=== PATIENT | male | born 1940 | race Caucasian/White ===

== ENCOUNTER 2017-12-14 15:25 | Emergency (ER) | payer MEDICARE ==
[2017-12-14 15:30] VITALS: BP 119/71; PULSE 52; RESP 16; TEMP 97.8
--- NOTE | 2017-12-14 15:58 | ED ---
General Adult HPI - General Chief complaint: Extremity Injury, Lower Stated complaint: Leg injury Time Seen by Provider: 12/14/17 15:34 Source: patient, RN notes reviewed Mode of arrival: ambulatory Limitations: no limitations - History of Present Illness Initial comments: 76-year-old male presents to the emergency department for a chief complaint of leg injury 4 hours. Patient states he stepped on a mat in his bathroom when it slipped forward and he hit his left darby against the bathtub. Patient states she noticed a bruise forming. He states he is on blood thinners and his wanted him to be evaluated. Patient denies falling. He denies injuring his back, neck. Patient denies hitting his head or any loss of consciousness. Patient denies any dizziness or lightheadedness preceding this incident. Patient states he is able to ambulate on the leg without any pain or difficulty. Patient has no other complaints at this time including shortness of breath, chest pain, abdominal pain, nausea or vomiting, headache, or visual changes. - Related Data Allergies Allergy/AdvReac Type Severity Reaction Status Date / Time No Known Allergies Allergy Verified 12/14/17 15:30 Review of Systems ROS Statement: Those systems with pertinent positive or pertinent negative responses have been documented in the HPI. ROS Other: All systems not noted in ROS Statement are negative. Past Medical History Past Medical History: CVA/TIA, Hypertension, Osteoarthritis (OA) History of Any Multi-Drug Resistant Organisms: None Reported Past Surgical History: Heart Catheterization With Stent, Orthopedic Surgery Past Psychological History: No Psychological Hx Reported Smoking Status: Current every day smoker Past Alcohol Use History: None Reported Past Drug Use History: None Reported General Exam Limitations: no limitations General appearance: alert, in no apparent distress Head exam: Present: atraumatic (No contusions noted on the scalp), normocephalic , normal inspection Eye exam: Present: normal appearance, PERRL, EOMI. Absent: scleral icterus, conjunctival injection, periorbital swelling, periorbital tenderness ENT exam: Present: normal exam, mucous membranes moist Neck exam: Present: normal inspection, full ROM. Absent: tenderness, meningismus, lymphadenopathy Respiratory exam: Present: normal lung sounds bilaterally. Absent: respiratory distress, wheezes, rales, rhonchi, stridor Cardiovascular Exam: Present: regular rate, normal rhythm, normal heart sounds. Absent: systolic murmur, diastolic murmur, rubs, gallop, clicks Extremities exam: Present: full ROM (full ROM of the left knee, ankle and digits ), tenderness (Mild tenderness noted to the contusion of the left lower extremity.), normal capillary refill (Capillary refill less than 2 seconds in foot warm to palpation in the left lower extremity.), calf tenderness (Minimal calf tenderness due to bruising, negative Homans sign, negative erythema or increased warmth in the left calf. No evidence for blood clot.), other ( Sensation intact in the left lower extremity. Patient does have a 8 cm x 8 cm contusion noted to the anterior medial left lower leg. No breaks in the skin.) . Absent: pedal edema Back exam: Absent: tenderness Neurological exam: Present: alert, oriented X3, CN II-XII intact Psychiatric exam: Present: normal affect, normal mood Course Vital Signs 12/14/17 15:26 Temperature 97.8 F Pulse Rate 52 L Respiratory 16 Rate Blood Pressure 119/71 O2 Sat by Pulse 98 Oximetry Medical Decision Making - Medical Decision Making 76-year-old male presents to the emergency department for a chief complaint of leg contusion 4 hours after hitting it on the side of the bathtub. He did not fall, hit his head, or sustain any other injuries. wanted him to be evaluated. There is an 8 cm x 8 cm contusion noted of the left anterior medial lower leg. Tenderness over contusion site. Patient able to ambulate without difficulty. Neurovascular intact in left lower extremity. Full range motion of the knee and ankle. Patient does have some minimal Tenderness that started 4 hours ago with the injury. Negative Cale sign, no erythema, edema, or increased warmth of the calf. Patient is on L Aquinas. No evidence for a DVT at this time. I did offer x-ray of the left tib-fib to patient which she refuses. Patient states that he thinks it would be a lot worse if he actually broke or fractured his leg. He states he is ambulating on it without difficulty. He states he would rather return if symptoms worsen for an x-ray. He will follow up with primary care in 1-2 days. Referrals were given. He will return if he has any worsening symptoms. Disposition Clinical Impression: Contusion of leg, left Disposition: HOME SELF-CARE Condition: Good Instructions: Contusion in Adults (ED), Leg Pain (ED) Additional Instructions: Please rest ice and elevate the left leg. Please follow-up with primary care in 1-2 days for recheck. Return to the emergency department if you have any worsening symptoms. Is patient prescribed a controlled substance at d/c from ED?: No Referrals: Marie Lenz MD [REFERRING] - 1-2 days Nikhil Horton MD [STAFF PHYSICIAN] - 1-2 days Geovanna Flores III, MD [STAFF PHYSICIAN] - 1-2 days Time of Disposition: 15:56
== END 2017-12-14 16:09 | disposition home or self-care (01) ==
LOC: EC 15:25
DX: S80.12XA Contusion of left lower leg, initial encounter (principal); F17.200 Nicotine dependence, unspecified, uncomplicated; Z79.01 Long term (current) use of anticoagulants; Z86.73 Personal history of transient ischemic attack (TIA), and cerebral infarction without residual deficits; W22.09XA Striking against other stationary object, initial encounter; Y92.002 Bathroom of unspecified non-institutional (private) residence as the place of occurrence of the external cause
CPT/HCPCS: 99283

== ENCOUNTER 2018-01-23 15:05 | Emergency (ER) | payer MEDICARE, OTHER ==
[2018-01-23 15:23] VITALS: RESP 18
[2018-01-23] MEDS ORDERED: MORPHINE SULFATE 4 MG/ML SYRINGE IM STA (15:42)
--- NOTE | 2018-01-23 16:11 | ED ---
Fall HPI - General Chief Complaint: Fall Stated Complaint: Fall-poss broken rib & hand Time Seen by Provider: 01/23/18 15:25 Source: patient, RN notes reviewed Mode of arrival: wheelchair Limitations: no limitations - History of Present Illness Initial Comments: This a 77-year-old male presents emergency Department chief complaint trip and fall. Patient states she tripped in his driveway falling forward striking his left shoulder, left hand and left side of his ribs. Patient also states that he struck his face. Patient has multiple abrasions on his face did not lose consciousness. Patient states he has slight headache. Patient is more concerned about his left shoulder ribs and hand. Patient did admit that he does take Eliquis. Patient lives states that he is at his normal baseline values in extreme pain. Patient denies any shortness of breath, nausea vomiting. Patient is up-to-date on his tetanus. - Related Data Previous Rx's Medication Instructions Recorded HYDROcodone/APAP 7.5-325MG [Berwick 1 tab PO Q6HR PRN 3 Days #12 tab 01/23/18 7.5-325] Allergies Allergy/AdvReac Type Severity Reaction Status Date / Time No Known Allergies Allergy Verified 01/23/18 15:23 Review of Systems ROS Statement: Those systems with pertinent positive or pertinent negative responses have been documented in the HPI. ROS Other: All systems not noted in ROS Statement are negative. Past Medical History Past Medical History: CVA/TIA, Hypertension, Osteoarthritis (OA) History of Any Multi-Drug Resistant Organisms: None Reported Past Surgical History: Heart Catheterization With Stent, Orthopedic Surgery Past Psychological History: No Psychological Hx Reported Smoking Status: Current every day smoker Past Alcohol Use History: None Reported Past Drug Use History: None Reported General Exam Limitations: no limitations General appearance: alert, in no apparent distress Head exam: Present: atraumatic, normocephalic, normal inspection Eye exam: Present: normal appearance, PERRL, EOMI, other (Patient is noted to left inferior orbital region). Absent: scleral icterus, conjunctival injection , periorbital swelling ENT exam: Present: normal oropharynx, mucous membranes moist, TM's normal bilaterally, normal external ear exam. Absent: normal exam (Nasal bridge abrasion) Neck exam: Present: normal inspection, full ROM. Absent: tenderness, meningismus, lymphadenopathy Respiratory exam: Present: normal lung sounds bilaterally, chest wall tenderness (Moderate left-sided). Absent: respiratory distress, wheezes, rales , rhonchi, stridor Cardiovascular Exam: Present: regular rate, normal rhythm, normal heart sounds. Absent: systolic murmur, diastolic murmur, rubs, gallop, clicks GI/Abdominal exam: Present: soft, normal bowel sounds. Absent: distended, tenderness, guarding, rebound, rigid Extremities exam: Present: other (Severe tenderness to left hand, left shoulder region no obvious deformity mild swelling., No hip tenderness) Neurological exam: Present: alert, oriented X3, CN II-XII intact, reflexes normal. Absent: motor sensory deficit Skin exam: Present: warm, dry, intact, normal color. Absent: rash Course Vital Signs 01/23/18 15:21 Temperature 98.5 F Pulse Rate 78 Respiratory 18 Rate Blood Pressure 118/86 O2 Sat by Pulse 99 Oximetry Procedures - Orthopedic Splinting/Casting Injury #1 Side: left Upper Extremity Injury Location: short arm, hand Upper Extremity Immobilizer: volar splint Medical Decision Making - Medical Decision Making 77-year-old male presents emergency from for a fall. Patient had CT of brain, C -spine and facial bones shows no acute intracranial hemorrhage, fracture or dislocation. Patient also had x-rays of his left shoulder, ribs, left hand. Patient has no evidence of rib fracture, pneumothorax no shoulder fracture but does have fracture of the fourth and fifth metacarpal of his left hand. Patient will be splinted. I did discuss with the patient that he is on Eliquis and he had a head injury. He has a normal neuro exam. We did discuss that there is a chance for a delayed bleed. He is return for any change, worsening, new or any other concerns in the symptoms. Patient and in the room understand and agree. Disposition Clinical Impression: Fall, Facial abrasion, Head injury, Left hand fracture, Contusion of rib on left side Disposition: HOME SELF-CARE Condition: Stable Instructions: Hand Fracture (ED), Head Injury (ED) Additional Instructions: Please return to the Emergency Department if symptoms worsen or any other concerns. Prescriptions: HYDROcodone/APAP 7.5-325MG [Berwick 7.5-325] 1 tab PO Q6HR PRN 3 Days #12 tab PRN Reason: Pain Is patient prescribed a controlled substance at d/c from ED?: No Referrals: [facility],Clinic [Primary Care Provider] - 1-2 days Linden Interiano MD [STAFF PHYSICIAN] - 1-2 days Time of Disposition: 16:57
--- NOTE | 2018-01-23 16:18 | XR ---
EXAMINATION TYPE: XR shoulder complete LT DATE OF EXAM: 01/23/2018 COMPARISON: NONE HISTORY: Pain TECHNIQUE: Shoulder examined in 3 FINDINGS: The humeral head articulates with the glenoid. Joint space may be narrowed. The acromio-clavicular junction is hypertrophied compatible with degenerative change. No acute fractures or dislocations are evident. A follow up study can be performed 7-10 days from acute trauma for continued pain. IMPRESSION: 1. Degenerative changes within the shoulder. No acute osseous abnormality is evident.
--- NOTE | 2018-01-23 16:18 | XR ---
EXAMINATION TYPE: XR hand complete LT DATE OF EXAM: 01/23/2018 COMPARISON: None HISTORY: Pain following fall TECHNIQUE: Three-view left hand FINDINGS: There is a fracture of the proximal fifth metacarpal, there is some displacement of the dis grayson fracture fragment. There is a distal diaphyseal fourth metacarpal fracture. There is loss of the joint space of the index finger metacarpal phalangeal joint space. 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 There is soft tissue swelling over the fracture sites. Remaining joint spaces appear preserved. IMPRESSION: 1. Fracture of the proximal fifth metacarpal with some mild subluxation of the distal fracture fragm ent in relation to the proximal fracture fragment. 2. Fracture of the distal metadiaphyseal for the metacarpal. 3. Degenerative joint changes second metacarpal phalangeal joint space. 4. 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 5. Diffuse soft tissue swelling greater over the fracture sites.
--- NOTE | 2018-01-23 16:19 | XR ---
EXAMINATION TYPE: XR ribs LT w pa chest xray DATE OF EXAM: 01/23/2018 COMPARISON: None HISTORY: Fall, pain TECHNIQUE: Chest is examined in the frontal projection. Left ribs are examined in 2 views. FINDINGS: No pneumothorax is evident. Cardiomediastinal silhouette is normal. No displaced rib fractu res are evident. IMPRESSION: 1. Normal left ribs
--- NOTE | 2018-01-23 16:43 | CT ---
EXAMINATION TYPE: CT brain natalia yeboah DATE OF EXAM: 01/23/2018 COMPARISON: HISTORY: Fall, nasal laceration CT DLP: 2485.5 mGycm, Automated exposure control for dose reduction was used. CONTRAST: Patient injected with mL of . CT of the brain is performed utilizing 3 mm thick sections through the posterior fossa and 3 mm thick sections through the remaining calvarium. Study is performed within 24 hours of arrival to the hospital. No abnormal hyperdensity is present to suggest an acute intracranial hemorrhage. No mass lesion is evident. No acute infarcts are evident. Old lacunar infarct or Virchow-Phill spaces in the inferior left basa l ganglion. Ventricles and sulci are appropriate for the patient age. Paranasal sinuses and mastoid air cells within the [id number] are clear. IMPRESSIONS: 1. No acute intracranial process. CT cervical spine. COMPARISON: None CT of the cervical spine is performed in the axial plane at 2 mm thick sections. Reconstructed image s in the coronal, and sagittal plane are reviewed on the computer. No acute fractures are evident. There is a slight kyphosis present of the cervical spine. There is loss of disc height greatest at C5-6 C6-7. Some vacuum disc phenomenon is present at these l evels. Anterior vertebral body spurring is present throughout the cervical spine. Vertebral body heights are preserved. No spinal canal stenosis is evident. Some uncovertebral joint hypertrophy is present C5-6 causing moderate foraminal narrowing. Milder unc overtebral joint hypertrophy is present C6-7 milder foraminal narrowing. IMPRESSIONS: 1. No acute osseous abnormality cervical spine. 2. Degenerative disc changes C5-6 C6-7. 3. Spinal kyphosis which can be positional or related to muscle spasm.
--- NOTE | 2018-01-23 16:45 | CT ---
EXAMINATION TYPE: CT facial bones wo con DATE OF EXAM: 01/23/2018 COMPARISON: None HISTORY: Fall, nasal laceration CT DLP: 2485.5 mGycm CONTRAST: 0 mL of Isovue 300 The facial bones are examined in the axial plane at 2 mm thick sections. Reconstructed images in the coronal plane were obtained. Patient has dentures. The maxillary sinuses are clear. The ethmoid air cells are clear. The sphenoid sinuses are clear. The frontal sinuses are clear. The septum is evaluated. There is septal deviation to the right. The ostiomeatal units are patent. Maxillary spine is intact. The facial soft tissues appear normal. Nasal bones are intact. Temporomandibular junctions appear normal. IMPRESSIONS: 1. No acute osseous abnormality facial bones.
[2018-01-23] MEDS ORDERED: HYDROcodone/APAP 10-325MG 1 EACH TAB PO ONE (17:06)
[2018-01-23 17:18] VITALS: BP 148/82; PULSE 81; TEMP 97.3
== END 2018-01-23 17:18 | disposition home or self-care (01) ==
LOC: EC 15:05
DX: S62.395A Other fracture of fourth metacarpal bone, left hand, initial encounter for closed fracture (principal); S62.397A Other fracture of fifth metacarpal bone, left hand, initial encounter for closed fracture; S20.212A Contusion of left front wall of thorax, initial encounter; S00.31XA Abrasion of nose, initial encounter; M19.90 Unspecified osteoarthritis, unspecified site; F17.200 Nicotine dependence, unspecified, uncomplicated; Z86.73 Personal history of transient ischemic attack (TIA), and cerebral infarction without residual deficits; Z95.5 Presence of coronary angioplasty implant and graft; W01.0XXA Fall on same level from slipping, tripping and stumbling without subsequent striking against object, initial encounter; Y93.01 Activity, walking, marching and hiking; Y92.093 Driveway of other non-institutional residence as the place of occurrence of the external cause
CPT/HCPCS: 71101; 73030; 73130; 72125; 70486; 70450; 99284; 29125; 96372; J2270

== ENCOUNTER → 2020-04-17 | Outpatient (CLI) | payer OTHER ==
--- NOTE | 2020-04-18 02:08 | MR ---
EXAMINATION TYPE: MR lumbar spine wo con DATE OF EXAM: 04/17/2020 COMPARISON: None HISTORY: Low back pain, fell in driveway 2 years ago. Multiplanar multiecho imaging of the lumbar spine was performed without contrast. Lumbar vertebra have fairly normal alignment. There is a minimal degenerative 4 mm subluxation at L4- 5. There is some narrowing at the spinal canal of L4-5 with hypertrophic facet arthropathy. There is moderate spinal stenosis and lateral recess stenosis at L4-5. There is bilateral narrowing of the lenard ral foramina at L4-5 and L5-S1 due to facet arthropathy and disc space narrowing. There is no gloria tiana fracture. There is no lumbar paraspinal mass. There is small posterior disc bulging at L5-S1. At L2-3 there is mild posterior disc bulging. IMPRESSION: Multilevel spondylotic changes as above. Mild degenerative L4-[address] enosis at L4-5. Small posterior disc bulging and herniations as above. No fracture seen.
== END | disposition home or self-care (01) ==
LOC: RADMRIMAIN 14:27
PROVIDERS: ATTEND Orthopaedic Surgery
DX: M48.061 Spinal stenosis, lumbar region without neurogenic claudication (principal); M43.16 Spondylolisthesis, lumbar region; M47.816 Spondylosis without myelopathy or radiculopathy, lumbar region
CPT/HCPCS: 72148

== ENCOUNTER 2020-08-08 08:43 | Day surgery (SDC) | payer OTHER ==
[2020-08-04 15:39] VITALS: BMI 37.7
[2020-08-08] MEDS ORDERED: LACTATED RINGERS 1,000 ML IV ONE (09:10)
[2020-08-08] MEDS ORDERED: LIDOCAINE 1% (10MG/ML) FOR IV START INTRADERMA ONE (09:11)
[2020-08-08 09:15] VITALS: TEMP 98.1
[2020-08-08] MEDS ORDERED: IOPAMIDOL M200 10 ML VIAL ONE (09:30)
[2020-08-08] MEDS ORDERED: fentaNYL (PF) 50 MCG/ML 2 ML AMP ONE (09:30)
[2020-08-08] MEDS ORDERED: MIDAZOLAM 2 MG/2 ML VIAL ONE (09:30)
[2020-08-08] MEDS ORDERED: methylPREDNISolone ACETATE 40 MG/ML 1 ML VIAL ONE (09:30)
[2020-08-08] MEDS ORDERED: LACTATED RINGERS 1,000 ML IV SCH (09:30)
[2020-08-08] MEDS ORDERED: IV FLUID CONTINUATION 775 ML IV ONE (09:52)
--- NOTE | 2020-08-08 09:57 | P.PCN ---
Date of Procedure: 08/08/20 Description of Procedure: Procedure: L4-L5 Epidural steroid injection under fluoroscopic guidance, 2. Lumbar epidurogram PREOPERATIVE DIAGNOSIS: Lumbar degenerative disc disease, and lumbar spine diagnosis POSTOPERATIVE DIAGNOSIS: Lumbar degenerative disc disease, and lumbar spine stenosis SURGEON: Abner Winston ANESTHESIA: Local with 1% lidocaine, and IV sedation as per anesthesia record EBL: None. Specimen removed: None Fluoroscopic image: saved to electronic medical records PROCEDURE INDICATION: The patient had history of Lumbar degenerative disc disease and lumbar spine stenosis. Failed to conservative therapy. Presented for epidural steroid injection. Patient had a previous transforaminal epidural which helped temporarily relief on one side but today patient is complaining his pain is in the midline and traveling on both sides. Patient wants to try the injection spread on both sides . So patient procedure changed to L4-L5 interlaminar epidural steroid injection. PROCEDURE DESCRIPTION: The patient was seen and identified in the preoperative area. Risks, benefits, complications, and alternatives were discussed with the patient. The patient agreed to proceed with the procedure and signed the consent. IV was started, and vital signs were stable. Patient was taken to the procedure area, and time out was completed. The patient was placed in the prone position on procedure table and a pillow was placed under the abdomen to reduce lumbar lordosis. The lumbosacral area was prepped and draped in the usual sterile fashion. Critical pause was taken. Vital signs were closely monitored during the procedure. Using anterior-posterior fluoroscopy, the L4-L5 interlaminar space was identified, and skin and deeper tissues were localized with 1% lidocaine. Using anterior-posterior fluoroscopy, lateral fluoroscopy, and [id number] technique, a 20 gauge 3.5 Tuohy epidural needle entered the epidural space. After negative aspiration of CSF and blood with no paresthesias, 2 ml of [id number] contrast dye was injected and an excellent epidurogram was seen. Again after negative aspiration of CSF and blood with no paresthesias, 10 mL of block solution was injected into the epidural space. Block solution contained 40 mg of Depo-Medrol, and 9 mL of preservative-free normal saline. Needle was withdrawn intact, skin was cleansed, and bandages were applied. COMPLICATIONS: None. DISPOSITION / PLANS: The patient was placed in a supine position and transferred to the recovery area in a stable condition for observation. Patient was discharged from the recovery room after meeting discharge criteria. Home discharge instructions given to the patient by the staff. The patient was reexamined prior to discharge. The patient will schedule a follow up in the clinic in 4 weeks.
[2020-08-08 10:07] VITALS: RESP 20
[2020-08-08 10:26] VITALS: BP 110/70; PULSE 69
--- NOTE | 2020-08-08 10:45 | FL ---
Fluoroscopy HISTORY: Pain 7 seconds fluoroscopy time supplied to the referring clinician. 2 intraoperative C-arm images docume nt the procedure. See dictated report from anesthesia.
== END 2020-08-08 10:22 | disposition home or self-care (01) ==
LOC: ORPAIN 08:43
DX: M48.061 Spinal stenosis, lumbar region without neurogenic claudication (principal); M51.36 Other intervertebral disc degeneration, lumbar region; I10 Essential (primary) hypertension; G25.2 Other specified forms of tremor; Z86.73 Personal history of transient ischemic attack (TIA), and cerebral infarction without residual deficits; Z95.5 Presence of coronary angioplasty implant and graft; Z96.653 Presence of artificial knee joint, bilateral; Z79.01 Long term (current) use of anticoagulants
CPT/HCPCS: 62323; J2250; J1030; J3010; Q9966; 64483; 99152

== ENCOUNTER 2020-08-12 22:29 | Emergency (ER) | payer OTHER, MEDICARE ==
[2020-08-12 22:40] VITALS: RESP 16
[2020-08-12 23:03] LABS: Glucose,Whole Blood 108 mg/dL (75-99)
[2020-08-12 23:37] LABS: Basophils # (A) 0.1 k/uL (0-0.2); Basophils % (A) 1 %; Eosinophils # (A) 0.3 k/uL (0-0.7); Eosinophils % (A) 2 %; HCT 48.6 % (39.0-53.0); HGB 16.1 gm/dL (13.0-17.5); Lymphocytes # (A) 3.3 k/uL (1.0-4.8); Lymphocytes % (A) 28 %; MCH 32.6 pg (25.0-35.0); MCHC 33.1 g/dL (31.0-37.0); MCV 98.3 fL (80.0-100.0); Mean Platelet Volume 8.5; Monocytes % (A) 8 %; Neutrophils # (A) 7.1 k/uL (1.3-7.7); Neutrophils % (A) 59 %; Platelet Count 181 k/uL (150-450); RBC 4.94 m/uL (4.30-5.90)
--- NOTE | 2020-08-12 23:45 | CT ---
EXAMINATION TYPE: CT brain wo con DATE OF EXAM: 08/12/2020 COMPARISON: 01/23/2018 HISTORY: vertigo CT DLP: 1086.4 mGycm Automated exposure control for dose reduction was used. Ventricles have normal size. There is no mass effect nor midline shift. There is no sign of intracran ial hemorrhage. There is mild atrophy appropriate for age. The calvarium is intact. There is no evide nce of cerebral edema. IMPRESSION: Head CT scan appears normal for age. No change compared to old exam.
--- NOTE | 2020-08-12 23:51 | XR ---
EXAMINATION TYPE: XR chest 2V DATE OF EXAM: 08/12/2020 COMPARISON: 01/23/2018 HISTORY: Altered mental status. TECHNIQUE: FINDINGS: There is no heart failure nor confluent pneumonic infiltrate. Costophrenic angles are clear . Bony thorax is intact. There is no thoracic compression fracture. IMPRESSION: No active cardiopulmonary disease. No change.
[2020-08-12 23:53] LABS: INR 1.1 (<1.2); Partial Thromboplastin Time 25.9 sec (22.0-30.0); Prothrombin Time 11.5 sec (9.0-12.0)
[2020-08-13 00:03] LABS: Albumin 3.6 g/dL (3.5-5.0); Calcium 9.4 mg/dL (8.4-10.2); Potassium 4.2 mmol/L (3.5-5.1); Total Bilirubin 1.4 mg/dL (0.2-1.3); Total Protein 6.3 g/dL (6.3-8.2)
--- NOTE | 2020-08-13 00:49 | CT ---
EXAMINATION TYPE: CT angio head neck DATE OF EXAM: 08/13/2020 COMPARISON: HISTORY: Vertigo CT DLP: 803.9 mGycm Automated exposure control for dose reduction was used. CONTRAST: Performed with IV Contrast, patient injected with 65 mL of Isovue 370. Images obtained from the aortic arch to the vertex of the brain with IV contrast. There are 3-D post processed images. There is normal branching pattern of the great vessels on the aortic arch. There is arterial flow in both subclavian arteries. Thoracic aorta is intact. There is no aneurysm or dissection. There is tisha rial flow in both internal carotid arteries. There is some plaque formation at the carotid artery bif urcations and lumen narrowing less than 20%. There is arterial flow in both vertebral arteries. There is no evidence of carotid or vertebral artery aneurysm or dissection. There is arterial flow in the vertebrobasilar artery system. There is arterial flow in the anterior m iddle and posterior cerebral arteries. There is no mass effect. There is no evidence of aneurysm or n eovascularity. There is normal enhancement of the venous sinuses. I see no evidence of intracranial arterial stenosis. IMPRESSION: Minimal plaque at the carotid artery bifurcations without evidence of any hemodynamic stenosis. Negative CT angiogram of the brain.
--- NOTE | 2020-08-13 00:57 | ED ---
General Adult HPI - General Chief complaint: Neuro Symptoms/Deficit Stated complaint: headache Time Seen by Provider: 08/12/20 22:41 Source: patient, family Mode of arrival: wheelchair Limitations: no limitations - History of Present Illness Initial comments: 79-year-old male presenting to the ER today for chief complaint of headache, increased tremor and bilateral hand tingling. Patient states that he has had a headache since this morning he states it came on gradually and was over the right judaism. Patient states it is now resolving. Patient states he felt slightly more off balance and usually states he struggles with balance on a daily basis for years. He states he also has a tremor of the upper extremity bilaterally doesn't present for quite some time. He states he has had upper carpal tunnel release on both wrists he states that he was using a hoe to break up some ground this morning and after he had tingling in the hands b/l. this resolved. Patient denies any localized weakness sensation deafness facial asymmetry speech changes vision changes or loss. He denies any facial pain I pain floaters inhaling nausea vomiting. Patient denies this being the worse headache of his life. Patient states he's been off FOR 3 days secondary to an injection. Patient denies any chest pain shortness of breath fevers neck stiffness. Patient has no additional complaints. - Related Data Home Medications Medication Instructions Recorded Confirmed Apixaban [Eliquis] 5 mg PO BID 08/04/20 08/08/20 Atorvastatin [Lipitor] 40 mg PO HS 08/04/20 08/04/20 Cholecalciferol (Vitamin D3) 50 mcg PO BID 08/04/20 08/04/20 [Decara (2000 Iu) Vitamin D3] DULoxetine HCL [Cymbalta] 60 mg PO DAILY 08/04/20 08/04/20 Propranolol [Inderal] 20 mg PO BID 08/04/20 08/04/20 Tamsulosin [Flomax] 0.4 mg PO BID 08/04/20 08/04/20 lisinopriL [Zestril] 20 mg PO DAILY 08/04/20 08/04/20 Previous Rx's Medication Instructions Recorded HYDROcodone/APAP 7.5-325MG [[place] 1 tab PO Q6HR PRN 3 Days #12 tab 01/23/18 7.5-325] Allergies Allergy/AdvReac Type Severity Reaction Status Date / Time No Known Allergies Allergy Verified 08/12/20 22:40 Review of Systems ROS Statement: Those systems with pertinent positive or pertinent negative responses have been documented in the HPI. ROS Other: All systems not noted in ROS Statement are negative. Past Medical History Past Medical History: CVA/TIA, Hearing Disorder / Deafness, Hypertension, Myocardial Infarction (CT), Osteoarthritis (OA), Prostate Disorder Additional Past Medical History / Comment(s): URINARY LEAKAGE , back pain Last Myocardial Infarction Date:: 2011 History of Any Multi-Drug Resistant Organisms: None Reported Past Surgical History: Heart Catheterization With Stent, Joint Replacement, Orthopedic Surgery, Tonsillectomy Additional Past Surgical History / Comment(s): TOTAL RIGHT KNEE AND TOTAL LEFT KNEE SURGERY. CARPAL TUNNEL RELEASE RIGHT WRIST Past Anesthesia/Blood Transfusion Reactions: No Reported Reaction Date of Last Stent Placement:: APPROXIMATE 2002 Past Psychological History: Depression Smoking Status: Current every day smoker Past Alcohol Use History: Rare Past Drug Use History: None Reported - Past Family History Father Family Medical History: Cancer General Exam - General Exam Comments Initial Comments: General: The patient is awake and alert, in no distress Eye: +3 mm pupils are equal, round and reactive to light, extra-ocular movements are intact. No nystagmus. There is normal conjunctiva bilaterally. No signs of icterus. Ears, nose, mouth and throat: There are moist mucous membranes and no oral lesions. Neck: The neck is supple, there is no tenderness or JVD. No nuchal rigidity Cardiovascular: There is a regular rate and rhythm. No murmur, rub or gallop is appreciated. Respiratory: Lungs are clear to auscultation, respirations are non-labored, breath sounds are equal. No wheezes, stridor, rales, or rhonchi. Gastrointestinal: Soft, non-distended, non-tender abdomen without masses or organomegaly noted. There is no rebound or guarding present. Musculoskeletal: Normal ROM, no tenderness. Strength 5/5 of the UE and LE b/l. Sensation intact of the UE and LE b/l. Radial and DP pulses equal bilaterally 2+. Neurological: A&O x 3. CN II-XII intact, There are no obvious motor or sensory deficits. Coordination appears grossly intact. Speech is normal. No pronator drift. Skin: Skin is warm and dry and no rashes or lesions are noted. Psychiatric: Cooperative, appropriate mood & affect, normal judgment. Limitations: no limitations Course Vital Signs 08/12/20 22:33 Temperature 97.8 F Pulse Rate 72 Respiratory 16 Rate Blood Pressure 133/78 O2 Sat by Pulse 98 Oximetry Medical Decision Making - Medical Decision Making 79-year-old male presenting today for chief complaint of headache no focal or neurological deficits on physical examination per patient has a tremor in the hands bilaterally and there is no signs of ataxia smooth and coordinated [id number] as well as [id number] gait without ataxia. pt has no weakness or drift. no temporal pain. no eye pain. no complaints of vision loss. CT, CTA (-). pt labs overall no critical findings. EKG no acute process evident nd at this time I feel pt is stable for discharge with pp /fu. Dr Vidales and patient are agreeable to discharge, pt states he prefers discharge a this time. pt is to return for any worsening symptoms. headache 04/09 on re-evaluation, refused medications. - Lab Data Result diagrams: 08/12/20 23:24 08/12/20 23:24 Lab Results 08/12/20 08/12/20 08/12/20 Range/Units 22:53 23:24 23:24 WBC 12.0 H (3.8-10.6) k/uL RBC 4.94 (4.30-5.90) m/uL Hgb 16.1 (13.0-17.5) gm/dL Hct 48.6 (39.0-53.0) % MCV 98.3 (80.0-100.0) fL MCH 32.6 (25.0-35.0) pg MCHC 33.1 (31.0-37.0) g/dL RDW 14.0 (11.5-15.5) % Plt Count 181 (150-450) k/uL MPV 8.5 Neutrophils % 59 % Lymphocytes % 28 % Monocytes % 8 % Eosinophils % 2 % Basophils % 1 % Neutrophils # 7.1 (1.3-7.7) k/uL Lymphocytes # 3.3 (1.0-4.8) k/uL Monocytes # 1.0 (0-1.0) k/uL Eosinophils # 0.3 (0-0.7) k/uL Basophils # 0.1 (0-0.2) k/uL PT 11.5 (9.0-12.0) sec INR 1.1 (<1.2) APTT 25.9 (22.0-30.0) sec Sodium (137-145) mmol/L Potassium (3.5-5.1) mmol/L Chloride (98-107) mmol/L Carbon Dioxide (22-30) mmol/L Anion Gap mmol/L BUN (9-20) mg/dL Creatinine (0.66-1.25) mg/dL Est GFR (CKD-EPI)AfAm (>60 ml/min/1.73 sqM) Est GFR (CKD-EPI)NonAf (>60 ml/min/1.73 sqM) Glucose (74-99) mg/dL POC Glucose (mg/dL) 108 H (75-99) mg/dL POC Glu Examination Proctor [place] Calcium (8.4-10.2) mg/dL Total Bilirubin (0.2-1.3) mg/dL AST (17-59) U/L ALT (4-49) U/L Alkaline Phosphatase (38-126) U/L Troponin I (0.000-0.034) ng/mL Total Protein (6.3-8.2) g/dL Albumin (3.5-5.0) g/dL 08/12/20 08/12/20 Range/Units 23:24 23:24 WBC (3.8-10.6) k/uL RBC (4.30-5.90) m/uL Hgb (13.0-17.5) gm/dL Hct (39.0-53.0) % MCV (80.0-100.0) fL MCH (25.0-35.0) pg MCHC (31.0-37.0) g/dL RDW (11.5-15.5) % Plt Count (150-450) k/uL MPV Neutrophils % % Lymphocytes % % Monocytes % % Eosinophils % % Basophils % % Neutrophils # (1.3-7.7) k/uL Lymphocytes # (1.0-4.8) k/uL Monocytes # (0-1.0) k/uL Eosinophils # (0-0.7) k/uL Basophils # (0-0.2) k/uL PT (9.0-12.0) sec INR (<1.2) APTT (22.0-30.0) sec Sodium 141 (137-145) mmol/L Potassium 4.2 (3.5-5.1) mmol/L Chloride 112 H (98-107) mmol/L Carbon Dioxide 24 (22-30) mmol/L Anion Gap 5 mmol/L BUN 19 (9-20) mg/dL Creatinine 0.98 (0.66-1.25) mg/dL Est GFR (CKD-EPI)AfAm 86 (>60 ml/min/1.73 sqM) Est GFR (CKD-EPI)NonAf 75 (>60 ml/min/1.73 sqM) Glucose 100 H (74-99) mg/dL POC Glucose (mg/dL) (75-99) mg/dL POC Glu Examination Proctor ID Calcium 9.4 (8.4-10.2) mg/dL Total Bilirubin 1.4 H (0.2-1.3) mg/dL AST 26 (17-59) U/L ALT 15 (4-49) U/L Alkaline Phosphatase 67 (38-126) U/L Troponin I <0.012 (0.000-0.034) ng/mL Total Protein 6.3 (6.3-8.2) g/dL Albumin 3.6 (3.5-5.0) g/dL Disposition Clinical Impression: Headache, Paresthesia, Tremor Disposition: HOME SELF-CARE Condition: Good Instructions (If sedation given, give patient instructions): Acute Headache (ED) Additional Instructions: Please use medication as discussed. Please follow-up with family doctor in the next 2 days, return for worsening symptoms. Please return to emergency room if the symptoms increase or worsen or for any other concerns. Is patient prescribed a controlled substance at d/c from ED?: No Referrals: [facility],Clinic [Primary Care Provider] - 1-2 days Time of Disposition: 00:57
[2020-08-13 03:25] VITALS: TEMP 98
[2020-08-13 03:26] VITALS: BP 135/71; PULSE 78
== END 2020-08-13 01:20 | disposition home or self-care (01) ==
LOC: EC 22:29
DX: R51.9 Headache, unspecified (principal); R20.2 Paresthesia of skin; R25.1 Tremor, unspecified; I10 Essential (primary) hypertension; M19.90 Unspecified osteoarthritis, unspecified site; I25.2 Old myocardial infarction; H91.90 Unspecified hearing loss, unspecified ear; F32.9 Major depressive disorder, single episode, unspecified; F17.200 Nicotine dependence, unspecified, uncomplicated; Z86.73 Personal history of transient ischemic attack (TIA), and cerebral infarction without residual deficits; Z79.01 Long term (current) use of anticoagulants
CPT/HCPCS: 36415; 93005; 80053; 84484; 85025; 85610; 85730; 71046; 70496; 70450; 70498; 99285; Q9967

== ENCOUNTER 2020-08-16 16:55 | Emergency (ER) | payer OTHER ==
[2020-08-16 17:02] VITALS: RESP 18; TEMP 98
--- NOTE | 2020-08-16 17:21 | ED ---
General Adult HPI - General Chief complaint: Neuro Symptoms/Deficit Stated complaint: neuro issue Time Seen by Provider: 08/16/20 17:10 Source: patient, RN notes reviewed, old records reviewed Mode of arrival: ambulatory Limitations: no limitations - History of Present Illness Initial comments: 79-year-old male presenting for reevaluation of headache. Patient was seen with the last week and had a workup for headache includes CT CT angiography. He did have some blurry vision but this is resolved. This was bilateral. His headache is both sides, temp oral. He was not the worst headache of his life, not sudden onset. This was a gradual onset headache. His headache nearly completely resolved at the time my evaluation. I didn't reimage this patient to ensure there was no intracranial hemorrhage. Onset was within [address] negative for intracranial hemorrhage. He has normal CBC, normal CMP, negative CRP, ESR is pending. I did offer observation with neurology consultation, possible MRI of the patient declines he prefers outpatient follow-up. His headache is nearly resolved vitals are stable. Nonfocal exam. Patient will be given referral to outpatient neurology and return parameters discussed. - Related Data Home Medications Medication Instructions Recorded Confirmed Apixaban [Eliquis] 5 mg PO BID 08/04/20 08/08/20 Atorvastatin [Lipitor] 40 mg PO HS 08/04/20 08/04/20 Cholecalciferol (Vitamin D3) 50 mcg PO BID 08/04/20 08/04/20 [Decara (2000 Iu) Vitamin D3] DULoxetine HCL [Cymbalta] 60 mg PO DAILY 08/04/20 08/04/20 Propranolol [Inderal] 20 mg PO BID 08/04/20 08/04/20 Tamsulosin [Flomax] 0.4 mg PO BID 08/04/20 08/04/20 lisinopriL [Zestril] 20 mg PO DAILY 08/04/20 08/04/20 Previous Rx's Medication Instructions Recorded HYDROcodone/APAP 7.5-325MG [[place] 1 tab PO Q6HR PRN 3 Days #12 tab 01/23/18 7.5-325] Allergies Allergy/AdvReac Type Severity Reaction Status Date / Time No Known Allergies Allergy Verified 08/16/20 16:58 Review of Systems ROS Statement: Those systems with pertinent positive or pertinent negative responses have been documented in the HPI. ROS Other: All systems not noted in ROS Statement are negative. Past Medical History Past Medical History: CVA/TIA, Hearing Disorder / Deafness, Hypertension, Myocardial Infarction ([place]), Osteoarthritis (OA), Prostate Disorder Additional Past Medical History / Comment(s): URINARY LEAKAGE , back pain Last Myocardial Infarction Date:: 2011 History of Any Multi-Drug Resistant Organisms: None Reported Past Surgical History: Heart Catheterization With Stent, Joint Replacement, Orthopedic Surgery, Tonsillectomy Additional Past Surgical History / Comment(s): TOTAL RIGHT KNEE AND TOTAL LEFT KNEE SURGERY. CARPAL TUNNEL RELEASE RIGHT WRIST Past Anesthesia/Blood Transfusion Reactions: No Reported Reaction Date of Last Stent Placement:: APPROXIMATE 2002 Past Psychological History: Depression Smoking Status: Current every day smoker Past Alcohol Use History: Rare Past Drug Use History: None Reported - Past Family History Father Family Medical History: Cancer General Exam Limitations: no limitations Course Vital Signs 08/16/20 16:58 Temperature 98 F Pulse Rate 60 Respiratory 18 Rate Blood Pressure 156/84 O2 Sat by Pulse 97 Oximetry EKG Findings - EKG Comments: EKG Findings:: EKG: Sinus bradycardia left axis, ventricular rate 55, [place] interval 166, QRS duration 86, QTC [address] segment elevation. Medical Decision Making - Lab Data Result diagrams: 08/16/20 17:54 08/16/20 17:54 Lab Results 08/16/20 08/16/20 08/16/20 Range/Units 17:54 17:54 17:54 WBC 9.7 (3.8-10.6) k/uL RBC 4.67 (4.30-5.90) m/uL Hgb 15.3 (13.0-17.5) gm/dL Hct 45.9 (39.0-53.0) % MCV 98.2 (80.0-100.0) fL MCH 32.7 (25.0-35.0) pg MCHC 33.3 (31.0-37.0) g/dL RDW 13.1 (11.5-15.5) % Plt Count 166 (150-450) k/uL MPV 8.4 Neutrophils % 52 % Lymphocytes % 33 % Monocytes % 7 % Eosinophils % 5 % Basophils % 1 % Neutrophils # 5.1 (1.3-7.7) k/uL Lymphocytes # 3.2 (1.0-4.8) k/uL Monocytes # 0.7 (0-1.0) k/uL Eosinophils # 0.4 (0-0.7) k/uL Basophils # 0.1 (0-0.2) k/uL PT 11.0 (9.0-12.0) sec INR 1.0 (<1.2) APTT 25.1 (22.0-30.0) sec Sodium 141 (137-145) mmol/L Potassium 4.3 (3.5-5.1) mmol/L Chloride 110 H (98-107) mmol/L Carbon Dioxide 28 (22-30) mmol/L Anion Gap 3 mmol/L BUN 20 (9-20) mg/dL Creatinine 0.92 (0.66-1.25) mg/dL Est GFR (CKD-EPI)AfAm >90 (>60 ml/min/1.73 sqM) Est GFR (CKD-EPI)NonAf 80 (>60 ml/min/1.73 sqM) Glucose 89 (74-99) mg/dL Calcium 9.4 (8.4-10.2) mg/dL Total Bilirubin 1.6 H (0.2-1.3) mg/dL AST 23 (17-59) U/L ALT 15 (4-49) U/L Alkaline Phosphatase 66 (38-126) U/L C-Reactive Protein <0.5 (<1.0) mg/dL Total Protein 6.5 (6.3-8.2) g/dL Albumin 3.8 (3.5-5.0) g/dL Disposition Clinical Impression: Headache Disposition: HOME SELF-CARE Condition: Fair Instructions (If sedation given, give patient instructions): Acute Headache (ED) Is patient prescribed a controlled substance at d/c from ED?: No Referrals: [facility],Clinic [Primary Care Provider] - 1-2 days Bharath Aguiar MD [REFERRING] - 1-2 days Bandar Singh MD [Medical Doctor] - 1-2 days Time of Disposition: 18:49
[2020-08-16 18:02] LABS: Basophils # (A) 0.1 k/uL (0-0.2); Basophils % (A) 1 %; Eosinophils # (A) 0.4 k/uL (0-0.7); Eosinophils % (A) 5 %; HCT 45.9 % (39.0-53.0); HGB 15.3 gm/dL (13.0-17.5); Lymphocytes # (A) 3.2 k/uL (1.0-4.8); Lymphocytes % (A) 33 %; MCH 32.7 pg (25.0-35.0); MCHC 33.3 g/dL (31.0-37.0); MCV 98.2 fL (80.0-100.0); Mean Platelet Volume 8.4; Monocytes # (A) 0.7 k/uL (0-1.0); Monocytes % (A) 7 %; Neutrophils # (A) 5.1 k/uL (1.3-7.7); Neutrophils % (A) 52 %; Platelet Count 166 k/uL (150-450); RBC 4.67 m/uL (4.30-5.90); RDW 13.1 % (11.5-15.5); WBC 9.7 k/uL (3.8-10.6)
[2020-08-16 18:12] LABS: Potassium 4.3 mmol/L (3.5-5.1)
[2020-08-16 18:14] LABS: ALT 15 U/L (4-49); AST 23 U/L (17-59); African American GFR (CKD) >90 (>60 ml/min/1.73 sqM); Albumin 3.8 g/dL (3.5-5.0); Alkaline Phosphatase 66 U/L (38-126); Anion Gap 3 mmol/L; Blood Urea Nitrogen 20 mg/dL (9-20); C Reactive Protein <0.5 mg/dL (<1.0); Calcium 9.4 mg/dL (8.4-10.2); Carbon Dioxide 28 mmol/L (22-30); Chloride 110 mmol/L (98-107); Glucose 89 mg/dL (74-99); Non-African American GFR(CKD) 80 (>60 ml/min/1.73 sqM); Sodium 141 mmol/L (137-145); Total Bilirubin 1.6 mg/dL (0.2-1.3); Total Protein 6.5 g/dL (6.3-8.2)
--- NOTE | 2020-08-16 18:23 | CT ---
EXAM: CT brain wo con CLINICAL HISTORY: Headache. COMPARISON: 08/12/2020 TECHNIQUE: Contiguous axial noncontrast images of the brain were obtained. Coronal and sagittal refor mats were generated and reviewed. Automated dose control was used for this exam. FINDINGS: There is no evidence for intracranial hemorrhage, mass effect or midline shift. White matter is gross ly preserved. Ventricular size and configuration is within normal limits for degree of parenchymal volume. The paranasal sinuses are clear. The mastoid air cells are clear. No evidence for calvarial fracture. IMPRESSION: No acute intracranial abnormality.
[2020-08-16 18:40] LABS: Partial Thromboplastin Time 25.1 sec (22.0-30.0)
[2020-08-16 18:50] LABS: Erythrocyte Sedimentation Rate 4 mm/hr (0-15)
[2020-08-16 19:00] VITALS: BP 141/80; PULSE 53
== END 2020-08-16 19:10 | disposition home or self-care (01) ==
LOC: EC 16:55 → SUPCPDRO 16:55 → EC 19:10
DX: R51.9 Headache, unspecified (principal); I10 Essential (primary) hypertension; M19.90 Unspecified osteoarthritis, unspecified site; I25.2 Old myocardial infarction; H91.90 Unspecified hearing loss, unspecified ear; F32.9 Major depressive disorder, single episode, unspecified; F17.200 Nicotine dependence, unspecified, uncomplicated; Z86.73 Personal history of transient ischemic attack (TIA), and cerebral infarction without residual deficits; Z79.01 Long term (current) use of anticoagulants
CPT/HCPCS: 36415; 70450; 80053; 85025; 85610; 85652; 85730; 86140; 93005; 99284

== ENCOUNTER → 2020-10-20 | Outpatient (CLI) | payer OTHER ==
[~2020-10-20] MED LIST: IODINE/POTASS IOD (LUGOLS) BOTTLE TOPICAL ONE
--- NOTE | 2020-10-23 10:17 | NM ---
EXAMINATION TYPE: NM DatScan Brain SPECT DATE OF EXAM: 10/22/2020 COMPARISON: NONE HISTORY: Tremors TECHNIQUE: 10 drops of Lugol's solution was administered 1 hour prior to injection as a thyroid bloc alondra agent. After the administration of 4.43 mCi I-123 Ioflupane DaTscan. Images obtained 3 hours p ost injection. SPECT images of the brain were acquired with axial and coronal reconstructions. FINDINGS: The axial SPECT images demonstrate increased background activity and reduced activity withi n the bilateral striata. IMPRESSION: Abnormal appearance highly suggestive of idiopathic Parkinson's disease or Parkinsonian s yndrome.
== END | disposition home or self-care (01) ==
LOC: RADNMMAIN 10:43
PROVIDERS: ATTEND Psychiatry & Neurology Neurology
DX: R25.1 Tremor, unspecified (principal)
CPT/HCPCS: 78803; A9584

== ENCOUNTER → 2022-11-15 | Outpatient (CLI) | payer MEDICARE ==
--- NOTE | 2022-11-20 12:12 | MR ---
EXAMINATION TYPE: MR shoulder RT wo con DATE OF EXAM: 11/15/2022 COMPARISON: X-ray 11/16/2022 HISTORY: Right shoulder pain. TECHNIQUE: Multiplanar, multisequence imaging of the right shoulder is performed without contrast. FINDINGS: Rotator Cuff: Atrophic changes in the musculature. Marked thickening of the distal margins of the inf raspinatus and supraspinatus tendons compatible with severe tendinopathy. A partial through thickness tear of the insertion of the supraspinatus tendon measuring 1 cm. There is fluid within the subacrom ial subdeltoid bursa. Subscapularis demonstrates abnormal signal at its insertion compatible with tendinopathy. Inferior fi bers appear to be intact with remaining fibers appearing to demonstrate through thickness tear. Acromioclavicular Joint: There is severe arthropathy of the AC joint likely resultant impingement. Glenohumeral Joint: Glenohumeral ligaments grossly intact. There is a trace of fluid in the joint spa ce. Mild arthropathy of the glenohumeral joint. Labrum: Bony labrum is severely limited due to lack of contrast and motion. Findings are suggestive o f a anterior superior labral tear. Biceps Tendon: Fluid surrounding the biceps tendon within the bicipital groove. There is intrasubstan ce abnormal signal within at the level of the humeral head and the tendon is nonvisualized and retrac vincent compatible with biceps tendon tear. Bone marrow signal: No focal abnormal marrow signal is appreciated. Other: No additional significant abnormality is appreciated. IMPRESSION: 1. Severe tendinopathy of the visualized rotator cuff tendons most marked involving supraspinatus wit h a partial through thickness tear measuring approximately 1 cm at the insertion. 2. Near-complete through thickness tear insertion subscapularis. 3. Severe tendinopathy and partial tear insertion infraspinatus tendon. 4. Bicipital tendon is seen to level the bicipital head where it appears to be retracted with the leigh pected complete through thickness tear. 5. Note is made there is a muscular atrophy of the visualized rotator cuff tendons. 6. Severe AC joint arthropathy with impingement.
== END | disposition home or self-care (01) ==
LOC: RADMRIMAIN 06:12
PROVIDERS: ATTEND Orthopaedic Surgery
DX: M19.011 Primary osteoarthritis, right shoulder (principal); M25.811 Other specified joint disorders, right shoulder; M62.511 Muscle wasting and atrophy, not elsewhere classified, right shoulder; M75.21 Bicipital tendinitis, right shoulder; S46.011A Strain of muscle(s) and tendon(s) of the rotator cuff of right shoulder, initial encounter; X58.XXXA Exposure to other specified factors, initial encounter

== ENCOUNTER 2023-01-24 14:14 | Emergency (ER) | payer OTHER, MEDICARE ==
[2023-01-24 14:40] VITALS: RESP 18
[2023-01-24] MEDS ORDERED: ONDANSETRON 4 MG/2 ML VIAL IVP STA (14:52)
[2023-01-24] MEDS ORDERED: HYDROmorphone 1 MG/ML 1 ML SYRINGE IVP STA ×3 (14:52→19:38)
[2023-01-24] MEDS ORDERED: SODIUM CHLORIDE 0.9% 500 ML 500 ML IV ONE (14:52)
--- NOTE | 2023-01-24 15:27 | ED ---
General Adult HPI - General Chief complaint: Fall Stated complaint: Fell lower back pain Time Seen by Provider: 01/24/23 14:31 Source: patient, family, RN notes reviewed Mode of arrival: wheelchair Limitations: no limitations - History of Present Illness Initial comments: 82-year-old male presents to the emergency department with a chief complaint of fall. Patient reports that he was walking outside when he tripped over a flag in his yard. He reports that he had right-sided pain and left-sided low back pain. He denies hitting his head or loss of consciousness. Patient does report that he takes Eliquis daily. She is complaining of worsening pain. He takes [place] 7.5 for pain have not helped. He denies any known fevers, saddle paresthesia, loss of bowel or bladder function. He denies any weakness in the extremities. He does feel short of breath however he endorses that it is related to pain. - Related Data Home Medications Medication Instructions Recorded Confirmed Apixaban [Eliquis] 5 mg PO BID 08/04/20 01/24/23 Cholecalciferol (Vitamin D3) 50 mcg PO BID 08/04/20 01/24/23 [Decara (2000 Iu) Vitamin D3] DULoxetine HCL [Cymbalta] 60 mg PO DAILY 08/04/20 01/24/23 Tamsulosin [Flomax] 0.4 mg PO BID 08/04/20 01/24/23 lisinopriL [Zestril] 20 mg PO DAILY 08/04/20 01/24/23 Atorvastatin [Lipitor] 40 mg PO HS 01/24/23 01/24/23 Carbidopa-Levodopa ER 50-200Mg 1 tab PO QID 01/24/23 01/24/23 [Sinemet CR 50-200 mg] Lidocaine 5% Patch [Lidoderm] 1 patch TRANSDERM DAILY 01/24/23 01/24/23 amantadine HCL [Amantadine] 100 mg PO BID 01/24/23 01/24/23 rOPINIRole HCL [Requip] 1 mg PO TID 01/24/23 01/24/23 Previous Rx's Medication Instructions Recorded HYDROcodone/APAP 7.5-325MG [Charleston 1 tab PO Q6HR PRN 3 Days #12 tab 01/23/18 7.5-325] Cyclobenzaprine [Flexeril] 10 mg PO TID PRN #15 tab 01/24/23 Allergies Allergy/AdvReac Type Severity Reaction Status Date / Time No Known Allergies Allergy Verified 01/24/23 16:53 Review of Systems ROS Statement: Those systems with pertinent positive or pertinent negative responses have been documented in the HPI. ROS Other: All systems not noted in ROS Statement are negative. Past Medical History Past Medical History: CVA/TIA, Hearing Disorder / Deafness, Hypertension, Myocardial Infarction ([place]), Neurologic Disorder, Osteoarthritis ([place]), Prostate Disorder Additional Past Medical History / Comment(s): URINARY LEAKAGE , back pain, Parkinson's Last Myocardial Infarction Date:: 2011 History of Any Multi-Drug Resistant Organisms: None Reported Past Surgical History: Heart Catheterization With Stent, Joint Replacement, Orthopedic Surgery, Tonsillectomy Additional Past Surgical History / Comment(s): TOTAL RIGHT KNEE AND TOTAL LEFT KNEE SURGERY. CARPAL TUNNEL RELEASE RIGHT WRIST Past Anesthesia/Blood Transfusion Reactions: No Reported Reaction Date of Last Stent Placement:: APPROXIMATE 2002 Past Psychological History: Depression Smoking Status: Current every day smoker Past Alcohol Use History: Rare Past Drug Use History: None Reported - Past Family History Father Family Medical History: Cancer General Exam - General Exam Comments Initial Comments: General: Alert, in no acute distress Head: atraumatic normocephalic. Eyes PERRL, EOMI intact, mucous membranes moist Respiratory: Lungs clear to auscultation bilaterally Cardiovascular: Rate regular rate and rhythm Abdominal: Soft without guarding or rebound Extremities: Normal inspection with full range of motion and normal capillary refill Neuroogic: alert and oriented 3, CN II-XII intact, able to ambulate with steady gait Skin: warm dry and intact with normal color Limitations: no limitations Course Vital Signs 01/24/23 01/24/23 14:21 20:17 Temperature 98.3 F 98.6 F Pulse Rate 89 87 Respiratory 18 18 Rate Blood Pressure 134/85 128/86 O2 Sat by Pulse 96 98 Oximetry - Reevaluation(s) Reevaluation #1: 01/24/23 17:01 a should reevaluated. Patient aware awaiting CT imaging results. Reevaluation #2: 01/24/23 19:36 He shouldn't reevaluated. Patient reports symptomatic improvement status post medications. Patient is agreeable with the plan for discharge. Medical Decision Making - Medical Decision Making Was pt. sent in by a medical professional or institution ([facility] Mcgow[facility], [facility], urgent care, hospital, or alf...) When possible be specific @ -[No] Did you speak to anyone other than the patient for history (EMS, parent, family, police, friend...)? What history was obtained from this source @ -[No] Did you review nursing and triage notes (agree or disagree)? Why? @ -[I reviewed and agree with nursing and triage notes] Were old charts reviewed (outside hosp., previous admission, EMS record, old EKG, old radiological studies, urgent care reports/EKG's, alf records)? Report findings @ -[No old charts were reviewed] Differential Diagnosis (chest pain, altered mental status, abdominal pain women, abdominal pain men, vaginal bleeding, weakness, fever, dyspnea, syncope, headache, dizziness, GI bleed, back pain, seizure, CVA, palpatations, mental health, musculoskeletal)? @ -[not applicable] EKG interpreted by me (3pts min.). @ -[As above] X-rays interpreted by me (1pt min.). @ -[None done] CT interpreted by me (1pt min.). @ CT lumbar spine and hips negative for any evidence of fracture or dislocation U/S interpreted by me (1pt. min.). @ -[None done] What testing was considered but not performed or refused? (CT, X-rays, U/S, labs)? Why? @ -[None] What meds were considered but not given or refused? Why? @ -[None] Did you discuss the management of the patient with other professionals (professionals i.e. CYN[facility] Mcgowan, [employer], lab, RT, psych nurse, social work associate, auto salvage worker, teacher, privacy officer, correctional casework specialist)? Give summary @ -[No] Was smoking cessation discussed for >3mins.? @ -[No] Was critical care preformed (if so, how long)? @ -[No] Were there social determinants of health that impacted care today? How? (Homelessness, low income, unemployed, alcoholism, drug addiction, transportation, low edu. Level, literacy, decrease access to med. care, halfway, rehab)? @ -[No] Was there de-escalation of care discussed even if they declined (Discuss DNR or withdrawal of care, Hospice)? DNR status @ -[No] What co-morbidities impacted this encounter? (DM, HTN, Smoking, COPD, CAD, Cancer, CVA, ARF, Chemo, Hep., AIDS, mental health diagnosis, sleep apnea, morbid obesity)? @ -[None] Was patient admitted / discharged? Hospital course, mention meds given and route, prescriptions, significant lab abnormalities, going to OR and other pertinent info. @ Discharged. 82-year-old male presents emergency Department with chief complaint of fall/low back pain. Patient had a thorough history and physical exam performed. Physical exam essentially unremarkable. Heart rate regular rate and rhythm, lungs clear to auscultation bilaterally abdomen soft and nontender. No focal neurologic deficits on exam. Patient able to ambulate with steady gait and move extremities freely. Patient had lab work and imaging which were essentially unremarkable. Including negative CT of the lumbar and hips. Patient given Dilaudid with symptomatic improvement. Provide a prescription for Flexeril. I discussed results in detail the patient verbalized understanding and all questions were addressed. Agreeable with plan for discharge home. Recommend close follow-up with PCP in 1-2 days. Return precautions discussed. Case discussed with Dr. Vidales, [facility] who agrees with plan of care Undiagnosed new problem with uncertain prognosis? @ -[No] Drug Therapy requiring intensive monitoring for toxicity (Heparin, Nitro, Insulin, Cardizem)? @ -[No] Were any procedures done? @ -[No] Diagnosis/symptom? @ -Low back Pain Acute, or Chronic, or Acute on Chronic? @ -Acute Uncomplicated (without systemic symptoms) or Complicated (systemic symptoms)? @ -Uncomplicated Side effects of treatment? @ -[No] Exacerbation, Progression, or Severe Exacerbation? @ -[No] Poses a threat to life or bodily function? How? (Chest pain, [place], [place], pneumonia, PE, COPD, DKA, ARF, appy, cholecystitis, CVA, Diverticulitis, Homicidal, Prerna cidal, threat to staff... and all critical care pts) @ -Low likelihood - Lab Data Result diagrams: 01/24/23 15:16 01/24/23 15:16 Lab Results 01/24/23 01/24/23 Range/Units 15:16 15:16 WBC 10.6 (3.8-10.6) k/uL RBC 4.67 (4.30-5.90) m/uL Hgb 15.1 (13.0-17.5) gm/dL Hct 45.3 (39.0-53.0) % MCV 97.2 (80.0-100.0) fL MCH 32.4 (25.0-35.0) pg MCHC 33.3 (31.0-37.0) g/dL RDW 12.8 (11.5-15.5) % Plt Count 170 (150-450) k/uL MPV 9.9 Neutrophils % 58 % Lymphocytes % 26 % Monocytes % 8 % Eosinophils % 6 % Basophils % 1 % Neutrophils # 6.1 (1.3-7.7) k/uL Lymphocytes # 2.7 (1.0-4.8) k/uL Monocytes # 0.8 (0-1.0) k/uL Eosinophils # 0.7 (0-0.7) k/uL Basophils # 0.1 (0-0.2) k/uL Sodium 141 (137-145) mmol/L Potassium 4.5 (3.5-5.1) mmol/L Chloride 108 H (98-107) mmol/L Carbon Dioxide 23 (22-30) mmol/L Anion Gap 10 mmol/L BUN 27 H (9-20) mg/dL Creatinine 1.08 (0.66-1.25) mg/dL Est GFR (CKD-EPI)AfAm 75 (>60 ml/min/1.73 sqM) Est GFR (CKD-EPI)NonAf 64 (>60 ml/min/1.73 sqM) Glucose 85 (74-99) mg/dL Calcium 9.7 (8.4-10.2) mg/dL Total Bilirubin 1.5 H (0.2-1.3) mg/dL AST 24 (17-59) U/L ALT 9 (4-49) U/L Alkaline Phosphatase 881 H (38-126) U/L Total Protein 6.8 (6.3-8.2) g/dL Albumin 3.9 (3.5-5.0) g/dL Disposition Clinical Impression: Fall, Low back pain Disposition: HOME SELF-CARE Condition: Stable Instructions (If sedation given, give patient instructions): Fall Prevention for Older Adults (ED), Low Back Strain (ED), Fall Prevention (ED) Additional Instructions: Please monitor symptoms closely Continue taking [place] 7.5mg or pain Add Flexeril for muscle spasm Please return to the nearest emergency department with symptoms worsen or persist Prescriptions: Cyclobenzaprine [Flexeril] 10 mg PO TID PRN #15 tab PRN Reason: Muscle Spasm Is patient prescribed a controlled substance at d/c from ED?: No Referrals: [facility],Clinic [Primary Care Provider] - 1-2 days Ren Shipley MD [STAFF PHYSICIAN] - 1-2 days Time of Disposition: 19:38
[2023-01-24 15:46] LABS: Basophils # (A) 0.1 k/uL (0-0.2); Basophils % (A) 1 %; Eosinophils # (A) 0.7 k/uL (0-0.7); Eosinophils % (A) 6 %; HCT 45.3 % (39.0-53.0); HGB 15.1 gm/dL (13.0-17.5); Lymphocytes # (A) 2.7 k/uL (1.0-4.8); Lymphocytes % (A) 26 %; MCH 32.4 pg (25.0-35.0); MCHC 33.3 g/dL (31.0-37.0); MCV 97.2 fL (80.0-100.0); Mean Platelet Volume 9.9; Monocytes # (A) 0.8 k/uL (0-1.0); Monocytes % (A) 8 %; Neutrophils # (A) 6.1 k/uL (1.3-7.7); Neutrophils % (A) 58 %; Platelet Count 170 k/uL (150-450); RBC 4.67 m/uL (4.30-5.90); RDW 12.8 % (11.5-15.5); WBC 10.6 k/uL (3.8-10.6)
[2023-01-24 16:54] LABS: ALT 9 U/L (4-49); AST 24 U/L (17-59); African American GFR (CKD) 75 (>60 ml/min/1.73 sqM); Albumin 3.9 g/dL (3.5-5.0); Anion Gap 10 mmol/L; Blood Urea Nitrogen 27 mg/dL (9-20); Calcium 9.7 mg/dL (8.4-10.2); Carbon Dioxide 23 mmol/L (22-30); Chloride 108 mmol/L (98-107); Glucose 85 mg/dL (74-99); Non-African American GFR(CKD) 64 (>60 ml/min/1.73 sqM); Potassium 4.5 mmol/L (3.5-5.1); Sodium 141 mmol/L (137-145); Total Bilirubin 1.5 mg/dL (0.2-1.3); Total Protein 6.8 g/dL (6.3-8.2)
[2023-01-24 17:40] LABS: Alkaline Phosphatase 881 U/L (38-126)
--- NOTE | 2023-01-24 19:11 | CT ---
EXAMINATION TYPE: CT pelvis wo con CT DLP: 3503 mGycm, Automated exposure control for dose reduction was used. DATE OF EXAM: 01/24/2023 4:13 PM COMPARISON: None. CLINICAL INDICATION:Male, 82 years old with history of BACK PAIN/ FALL; fall lower back pain TECHNIQUE: Axial CT of the pelvis without contrast. Sagittal and coronal reformats were created on a separate workstation. 3-D rotational surface rendered images of the bony pelvis created on a [employer] workstation. Contrast used: mL of , (none if empty) Oral contrast used: without Oral Contrast (none if empty) FINDINGS: PELVIS KIDNEYS: Imaged kidneys show multiple hypodense nodules bilaterally the largest inferiorly on the rig ht up to 13 cm, most likely cysts. Punctate calculus in the lower pole of the right kidney. No hydron ephrosis is seen. BLADDER: Mildly distended, otherwise unremarkable REPRODUCTIVE: Mildly prominent prostate measures 5 cm transverse. GI TRACT: Stomach is not included. Visualized small bowel shows no significant distention or inflamma tion. The appendix appears within normal limits. There are scattered colonic diverticula without evid ence of diverticulitis at this time. PERITONEUM/RETROPERITONEUM: No evidence of pneumoperitoneum or free fluid. VASCULATURE: Moderate atherosclerotic calcifications are present throughout the abdominal aorta and i ts branches. No evidence of aortic aneurysm. MUSCULOSKELETAL: Degenerative changes in the SI joints with partial fusion some patchy sclerosis nayana g the right SI joint may be sequela of sacroiliitis. Bony pelvis appears intact. Probable small bone island in the left iliac wing. Mild bilateral hip arthropathy. No acute fracture lucency of the visua lized pelvis or proximal femurs. LYMPH NODES: No bulky adenopathy is seen. Several nonspecific nonenlarged retroperitoneal nodes, may be normal/reactive. SOFT TISSUE/ABDOMINAL WALL: Unremarkable IMPRESSION: 1. No acute fracture or other acute abnormality in the pelvis. 2. Other chronic and likely incidental findings, as described above.
--- NOTE | 2023-01-24 19:18 | CT ---
EXAMINATION TYPE: CT lumbar spine wo con CT DLP: 3503 mGycm, Automated exposure control for dose reduction was used. DATE OF EXAM: 01/24/2023 4:13 PM COMPARISON: None. CLINICAL INDICATION:Male, 82 years old with history of BACK PAIN/ FALL; PHH, fall lower back pain TECHNIQUE: Multiple axial images were obtained from the midportion of T11 through the sacroiliac elizabeth nts. Soft tissue and bone windows in coronal and sagittal planes were obtained and reviewed. 3-D ref ormats of the bones were created on a separate workstation and submitted for review. Contrast used: mL of , none. Oral contrast used: none. FINDINGS: Bones: Osseous mineralization appears somewhat diminished. There are 5 lumbar-type vertebral bodies. There is multilevel moderate degenerative disc disease and facet arthropathy, with mild/moderate rupert l and neural foraminal stenoses throughout. No critical stenosis is suggested. No acute fracture or t raumatic malalignment is seen. Slight retrolisthesis L2 on L3, L3 on L4, and anterolisthesis of L4-L5 , appears degenerative. Small sclerotic focus T12 vertebral body, may represent bone island. A few va reggie patchy areas of sclerosis are also seen scattered throughout, most conspicuous L3 and L5-S1, nons pecific but most likely chronic/reactive. No destructive lesion is identified. Soft tissues: Partially seen multiple bilateral renal nodules, not fully characterized but may be cys ts; this could be further evaluated with dedicated renal imaging as an outpatient if warranted. Punct ate nonobstructing calculus lower pole right kidney. Moderate atherosclerotic calcifications of the a kevin without evidence of AAA. Partially seen 2.8 cm gallstone. A few nonenlarged nodes and mild retro peritoneal stranding, nonspecific but probably chronic. IMPRESSION: 1. No evidence of acute lumbar spine fracture or traumatic malalignment. 2. Moderate multilevel spondylosis and other likely chronic/degenerative findings described above
[2023-01-24 20:27] VITALS: BP 128/86; PULSE 87; TEMP 98.6
== END 2023-01-24 20:18 | disposition home or self-care (01) ==
LOC: EC 14:14
DX: M54.50 Low back pain, unspecified (principal); W19.XXXA Unspecified fall, initial encounter; E11.10 Type 2 diabetes mellitus with ketoacidosis without coma; F32.A Depression, unspecified; I10 Essential (primary) hypertension; I25.10 Atherosclerotic heart disease of native coronary artery without angina pectoris; I25.2 Old myocardial infarction; J44.9 Chronic obstructive pulmonary disease, unspecified; F17.200 Nicotine dependence, unspecified, uncomplicated; Z79.01 Long term (current) use of anticoagulants; Z79.899 Other long term (current) drug therapy; W01.0XXA Fall on same level from slipping, tripping and stumbling without subsequent striking against object, initial encounter; Y93.01 Activity, walking, marching and hiking
CPT/HCPCS: 36415; 80053; 85025; 72192; 72131; 99284; 96374; 96375; 96376 ×2; J2405; J1170

== ENCOUNTER → 2023-03-25 | Outpatient (CLI) | payer OTHER ==
--- NOTE | 2023-03-25 10:15 | US ---
EXAMINATION TYPE: US liver DATE OF EXAM: 03/25/2023 COMPARISON: CT 01/24/2023 CLINICAL INDICATION: Male, 82 years old with history of R74.01ELEVATION OF LEVELS OF LIVER TRANSAMINA SE LE; Elevated LFT's TECHNIQUE: Multiple sonographic images of the right upper quadrant are obtained. FINDINGS: EXAM MEASUREMENTS: Liver Length: 16.9 cm Gallbladder Wall: 0.2 cm CBD: 0.4 cm Right Kidney: 12.5 x 7.1 x 6.2 cm HEATING AND VENTILATING WORKER NOTES: Morbidly obese elderly pt Pancreas: Obscured by bowel gas Liver: Limited views show no abnormality no suspicious masses, cystic structures are dilated ducts . Gallbladder: 2.9 cm gallstone, wall not thickened Evidence for sonographic Pinzon's sign: No CBD: wnl Right Kidney: Large cystic lesion lower pole= 13.6 x 9.5 x 12.0 cm compatible with simple appearing cyst. IMPRESSION: Cholelithiasis.
== END | disposition home or self-care (01) ==
LOC: RADUSWWP 09:31
DX: K80.20 Calculus of gallbladder without cholecystitis without obstruction (principal); R74.01 Elevation of levels of liver transaminase levels
CPT/HCPCS: 76705

== ENCOUNTER → 2023-03-26 | Outpatient (CLI) | payer OTHER ==
[2023-03-26 15:08] LABS: GGT 31 U/L (0-73)
[2023-03-26 15:21] LABS: Blood Urea Nitrogen 16.6 mg/dL (9.0-27.0); Carbon Dioxide 22.7 mmol/L (21.6-31.8); Chloride 105 mmol/L (96-109); Glucose 89 mg/dL (70-110); Potassium 4.4 mmol/L (3.5-5.5); Sodium 142 mmol/L (135-145)
[2023-03-26 15:22] LABS: ALT 7 U/L (10-49); AST 26 U/L (14-35); Albumin 3.6 g/dL (3.8-4.9); Albumin/Globulin Ratio 1.29 Ratio (1.60-3.17); Alkaline Phosphatase 1305 U/L (41-126); Calcium 9.4 mg/dL (8.7-10.3); Globulin 2.8 g/dL (1.6-3.3); Total Bilirubin 0.9 mg/dL (0.3-1.2); Total Protein 6.4 g/dL (6.2-8.2)
[2023-03-26 15:51] LABS: Eosinophils % (A) 2.9 %; HCT 44.5 % (39.6-50.0); HGB 14.2 g/dL (13.0-17.0); Lymphocytes # (A) 3.36 X 10*3/uL (0.90-5.00); MCHC 31.9 g/dL (32.0-37.0); MCV 94.1 FL (80.0-97.0); Mean Platelet Volume 13.1 FL (9.5-12.2); Monocytes # (A) 0.94 X 10*3/uL (0.20-1.00); NRBC Per 100 WBC 0 X 10*3/uL (0.00-0.01); Neutrophils # (A) 5.72 X 10*3/uL (1.80-7.70); Neutrophils % (A) 54.3 %; Platelet Count 167 X 10*3/uL (140-440); RBC 4.73 X 10*6/uL (4.40-5.60); RBC Morphology Normal (Normal); RDW 13.6 % (11.5-14.5)
== END | disposition home or self-care (01) ==
LOC: LABWHC1 09:38
PROVIDERS: ATTEND Internal Medicine Gastroenterology
DX: R74.8 Abnormal levels of other serum enzymes (principal)
CPT/HCPCS: 36415; 80053; 82977; 85025

== ENCOUNTER 2023-04-02 10:38 | Inpatient (IN) | payer OTHER, MEDICARE ==
[2023-04-02] MEDS ORDERED: KETOROLAC 15 MG/ML 1 ML VIAL IVP STA (10:48)
[2023-04-02] MEDS ORDERED: HYDROmorphone 1 MG/ML 1 ML SYRINGE IVP STA (10:48)
--- NOTE | 2023-04-02 11:00 | ED ---
Extremity Problem HPI - General Chief complaint: Extremity Injury, Lower Stated complaint: Right hip pain Time Seen by Provider: 04/02/23 10:40 Source: patient, EMS, RN notes reviewed Mode of arrival: EMS Limitations: no limitations - History of Present Illness Initial comments: This is an 82-year-old male who presents to the emergency department for right hip pain. States that it started 2-3 weeks ago. He fell 2 months ago, landing on his right side. However, he states that he seemed to recover without any problems from this. States that the pain beginning 2-3 weeks ago occurred suddenly when he woke up in the morning. Pain seems to be getting worse. He does take Percocet 3 times daily for his back pain, and states that this is not offering any improvement to the hip. He was previously using a cane for ambulation, but had to move to a walker due to the hip pain, and states that he is now barely able to put any pressure on the leg. MD Complaint: extremity pain - Related Data Home Medications Medication Instructions Recorded Confirmed Apixaban [Eliquis] 5 mg PO BID 08/04/20 04/02/23 Cholecalciferol (Vitamin D3) 50 mcg PO BID 08/04/20 04/02/23 [Decara (2000 Iu) Vitamin D3] DULoxetine HCL [Cymbalta] 60 mg PO DAILY 08/04/20 04/02/23 Tamsulosin [Flomax] 0.4 mg PO BID 08/04/20 04/02/23 lisinopriL [Zestril] 20 mg PO DAILY 08/04/20 04/02/23 Atorvastatin [Lipitor] 40 mg PO HS 01/24/23 04/02/23 Carbidopa-Levodopa ER 50-200Mg 1 tab PO QID 01/24/23 04/02/23 [Sinemet CR 50-200 mg] amantadine HCL [Amantadine] 100 mg PO BID 01/24/23 04/02/23 rOPINIRole HCL [Requip] 1 mg PO HS 01/24/23 04/02/23 HYDROcodone/APAP 7.5-325MG [[place] 1 tab PO Q6H 04/02/23 04/02/23 7.5-325] Allergies Allergy/AdvReac Type Severity Reaction Status Date / Time No Known Allergies Allergy Verified 04/02/23 11:52 Review of Systems ROS Statement: Those systems with pertinent positive or pertinent negative responses have been documented in the HPI. ROS Other: All systems not noted in ROS Statement are negative. Past Medical History Past Medical History: CVA/TIA, Hearing Disorder / Deafness, Hypertension, Myocardial Infarction ([place]), Neurologic Disorder, Osteoarthritis (OA), Prostate Disorder Additional Past Medical History / Comment(s): URINARY LEAKAGE , back pain, Parkinson's Last Myocardial Infarction Date:: 2011 History of Any Multi-Drug Resistant Organisms: None Reported Past Surgical History: Heart Catheterization With Stent, Joint Replacement, Orthopedic Surgery, Tonsillectomy Additional Past Surgical History / Comment(s): TOTAL RIGHT KNEE AND TOTAL LEFT KNEE SURGERY. CARPAL TUNNEL RELEASE RIGHT WRIST Past Anesthesia/Blood Transfusion Reactions: No Reported Reaction Date of Last Stent Placement:: 2002 Past Psychological History: Depression Smoking Status: Current every day smoker Past Alcohol Use History: Rare Past Drug Use History: None Reported - Past Family History Father Family Medical History: Cancer General Exam Limitations: no limitations General appearance: alert, in no apparent distress Head exam: Present: atraumatic, normocephalic, normal inspection Respiratory exam: Present: normal lung sounds bilaterally. Absent: respiratory distress, wheezes, rales, rhonchi, stridor Cardiovascular Exam: Present: regular rate, normal rhythm, normal heart sounds. Absent: systolic murmur, diastolic murmur, rubs, gallop, clicks Extremities exam: Present: other (Tenderness to palpation over the right greater trochanter. No deformities. ROM limited by pain.) Neurological exam: Present: alert, oriented X3, CN II-XII intact Psychiatric exam: Present: normal affect, normal mood Skin exam: Present: warm, dry, intact, normal color. Absent: rash Course Vital Signs 04/02/23 04/02/23 04/02/23 10:39 15:00 17:14 Temperature 98 F 97.1 F L Pulse Rate 85 84 Pulse Rate [ 64 Pulse Oximetery ] Respiratory 18 18 18 Rate Blood Pressure 120/77 127/71 Blood Pressure 90/50 [Left Arm] Blood Pressure 90/61 [Right Arm] O2 Sat by Pulse 95 97 97 Oximetry 04/02/23 17:15 Temperature Pulse Rate Pulse Rate [ 64 Pulse Oximetery ] Respiratory 18 Rate Blood Pressure Blood Pressure [Left Arm] Blood Pressure [Right Arm] O2 Sat by Pulse Oximetry Medical Decision Making - Medical Decision Making This is an 82 year old male who presents to the emergency department for right hip pain. Was pt. sent in by a medical professional or institution? @ -No Did you speak to anyone other than the patient for history? @ -No Did you review nursing and triage notes? @ -Yes, and I agree, it is accurate with regards to the patient's symptoms. Were old charts reviewed? @ -No Differential Diagnosis? @ -Differential Musculoskeletal: Muscular strain, contusion, ligament sprain, fracture, arthritis, septic arthritis, bursitis, cellulitis, muscle spasm, nerve compression, DVT, arterial occlusion, herpes zoster, electrolyte abnormality, tumor.... This is not meant to be in all inclusive list EKG interpreted by me (3pts min.)? @ -Not obtained X-rays interpreted by me (1pt min.)? @ -X-ray of the right hip obtained. My interpretation identifies a pubic ramus fracture. CT interpreted by me (1pt min.)? @ -CT scan of the pelvis obtained. My interpretation identifies a pubic ramus fracture without displacement. U/S interpreted by me (1pt. min.)? @ -Not obtained What testing was considered but not performed? (CT, X-rays, U/S, labs)? Why? @ -None What meds were considered but not given? Why? @ -None Did you discuss the management of the patient with other professionals? @ -Yes, Dr. Estes, who accepts the patient for admission. Did you reconcile home meds? @ -Yes Was smoking cessation discussed for >3mins.? @ -I discussed smoking cessation for greater than 3 minutes. The risk of smoking were discussed with the patient including but not limited to risks of cancer, stroke, coronary artery disease and COPD. Also discussed with patient were multiple methods of quitting smoking. Lastly we discussed the financial cost of smoking. Was critical care preformed (if so, how long)? @ -No Were there social determinants of health that impacted care today? How? (Homelessness, low income, unemployed, alcoholism, drug addiction, transportation, low edu. Level, literacy, decrease access to med. care, fpc, rehab)? @ -No Was there de-escalation of care discussed even if they declined? (Discuss DNR or withdrawal of care, Hospice)? @ -No What co-morbidities impacted this encounter? (DM, HTN, Smoking, COPD, CAD, Cancer, CVA, Hep., AIDS, mental health diagnosis, sleep apnea, morbid obesity)? @ -Osteoarthritis Was patient admitted / discharged? @ -Admitted. We initially obtained x-rays of the right hip, which demonstrated a fracture of the medial pubic ramus with questionable ischial pubic ramus fracture. We subsequently obtained a CT scan of the pelvis for further evaluation. This identified diffuse osseous metastatic disease with a new acute nondisplaced fracture of the right inferior pelvic ramus. Findings reviewed with the patient. Patient is opioid tolerant and already in severe pain with an inability to ambulate despite taking narcotics, making pain control difficult. Patient subsequently admitted to medicine for pain control of pelvic ramus fracture and hem/onc evaluation regarding osseous metastatic disease on CT scan. Lab work obtained prior to admission demonstrating an elevated alkaline andres sphatase of 1339. Patient states that he has been following with COLLIN Villanueva, regarding elevated liver enzymes and a cause of this has not been determined. Undiagnosed new problem with uncertain prognosis? @ -None Drug Therapy requiring intensive monitoring for toxicity (Heparin, Nitro, Insulin, Cardizem)? @ -None Were any procedures done? @ -None Diagnosis/symptom? @ -Pelvic ramus fracture, metastatic disease Acute, or Chronic, or Acute on Chronic? @ -Acute Uncomplicated (without systemic symptoms) or Complicated (systemic symptoms)? @ -Complicated Side effects of treatment? @ -None Exacerbation, Progression, or Severe Exacerbation] @ -Not applicable Poses a threat to life or bodily function? @ -Yes This case was discussed in detail with the attending ED physician, Dr. Weeks. Presentation, findings, and treatment plan discussed in detail as well. - Lab Data Result diagrams: 04/02/23 13:45 04/02/23 13:45 - Radiology Data Radiology results: report reviewed, image reviewed Disposition Clinical Impression: Nicotine dependence, Inferior pubic ramus fracture, Metastatic disease Disposition: ADMITTED IP TO THIS HOSP
--- NOTE | 2023-04-02 12:12 | XR ---
EXAMINATION TYPE: XR Hip Complete RT DATE OF EXAM: 04/02/2023 COMPARISON: None HISTORY: Fall, pain TECHNIQUE: 2 view right hip FINDINGS: Femoral head articulates with the acetabulum. No acute fracture or dislocation in the femur is evident. There is a subtle pubic ramus fracture. Mid dish she'll ramus fracture may be present. IMPRESSION: 1. Fracture of the medial pubic ramus. Initial ramus fracture may be present. 2. Right hip appears intact.
--- NOTE | 2023-04-02 12:54 | CT ---
EXAMINATION TYPE: CT pelvis wo con DATE OF EXAM: 04/02/2023 COMPARISON: Prior CT pelvis January 24, 2023 HISTORY: Pubic rami fracture on X-ray. Pain after fall. CT DLP: 675.2 mGycm Automated exposure control for dose reduction was used. FINDINGS: There is diffuse sclerosis throughout the central aspect of the sacrum extending to the right and adj acent right iliac bone with scattered smaller focal sclerotic lesions throughout the left sacrum nayana g with left iliac bone in the left pubic symphysis and pelvic rami bilaterally. Slight cortical break through right inferior pelvic ramus consistent with acute nondisplaced fracture is seen best coronal image 66. No additional acute fractures. There is significant narrowing of the bilateral sacroiliac joints redemonstrated. Pubic symphysis is intact. No acute fracture in the bilateral hips. Moderate a xial joint space loss and acetabular spurring bilaterally is seen. Small sclerotic foci proximal femu rs bilaterally are present. Sclerotic foci increased in number and size from prior study partial visu alization of exophytic thin-walled cyst in the right lower quadrant presumed from the lower pole righ t kidney on current study is noted. IMPRESSION: Diffuse osseous metastatic disease with interval progression in size and number of lesion s from prior study. New acute nondisplaced fracture involving the right inferior pelvic ramus is conf irmed.
[2023-04-02] MEDS ORDERED: ONDANSETRON 4 MG/2 ML VIAL IVP PRN (13:22)
[2023-04-02] MEDS ORDERED: KETOROLAC 15 MG/ML 1 ML VIAL IVP PRN (13:22)
[2023-04-02] MEDS ORDERED: NALOXONE 0.4 MG/ML 1 ML VIAL IV PRN (13:22)
[2023-04-02] MEDS ORDERED: MORPHINE SULFATE 4 MG/ML SYRINGE IV PRN (13:22)
[2023-04-02] MEDS ORDERED: ACETAMINOPHEN TAB 325 MG TAB PO PRN (13:22)
[2023-04-02] MEDS: HYDROcodone/APAP 5-325MG 1 EACH TAB PO PRN ×2 (13:50→23:36)
[2023-04-02] MEDS: HYDROcodone/APAP 7.5-325MG 1 EACH TAB PO SCH ×3 (13:52→23:41)
[2023-04-02 13:54] LABS: Basophils # (A) 0.1 k/uL (0-0.2); Basophils % (A) 1 %; Eosinophils # (A) 0.1 k/uL (0-0.7); Eosinophils % (A) 1 %; HCT 42.3 % (39.0-53.0); Lymphocytes # (A) 3.1 k/uL (1.0-4.8); Lymphocytes % (A) 25 %; MCH 30.9 pg (25.0-35.0); MCHC 33.2 g/dL (31.0-37.0); MCV 93.2 fL (80.0-100.0); Mean Platelet Volume 8.2; Monocytes # (A) 0.9 k/uL (0-1.0); Monocytes % (A) 7 %; Neutrophils % (A) 64 %; Platelet Count 175 k/uL (150-450); RBC 4.54 m/uL (4.30-5.90); RDW 13.4 % (11.5-15.5); WBC 12.4 k/uL (3.8-10.6)
[2023-04-02 14:02] LABS: ALT 7 U/L (4-49); AST 25 U/L (17-59); African American GFR (CKD) 74 (>60 ml/min/1.73 sqM); Albumin 3.4 g/dL (3.5-5.0); Anion Gap 9 mmol/L; Blood Urea Nitrogen 27 mg/dL (9-20); Calcium 8.6 mg/dL (8.4-10.2); Carbon Dioxide 22 mmol/L (22-30); Chloride 106 mmol/L (98-107); Glucose 100 mg/dL (74-99); Non-African American GFR(CKD) 64 (>60 ml/min/1.73 sqM); Potassium 4.3 mmol/L (3.5-5.1); Sodium 137 mmol/L (137-145); Total Bilirubin 1.5 mg/dL (0.2-1.3); Total Protein 6.4 g/dL (6.3-8.2)
[2023-04-02 14:35] LABS: INR 1.2 (<1.2); Partial Thromboplastin Time 27.4 sec (22.0-30.0); Prothrombin Time 12.9 sec (10.0-12.5)
[2023-04-02 14:45] LABS: Alkaline Phosphatase 1339 U/L (38-126)
[2023-04-02] MEDS ORDERED: HYDROmorphone 1 MG/ML 1 ML SYRINGE IVP PRN (16:17)
--- NOTE | 2023-04-02 16:18 | P.HPIM ---
History of Present Illness H&P Date: 04/02/23 82-year-old male with PMH of Parkinson's, CAD, history of TIA, hypertension, BPH since ED for right hip pain. He reports mechanical fall in December for which he has been dealing with lower back pain issues. He has seen a chiropractor. For the past 2 weeks, patient reports right hip pain, sore in nature, sharp and stabbing with ambulation with radiation to the right knee, 20 out of 10 severity. He has difficulty ambulating with the aid of a walker as a result. In the ED, he underwent extensive evaluation. BP 120/77, HR 85, RR 18, T 98 F, 95% on room air. CBC showed a WBC count of 12.4. INR 1.2. CMP BUN 27, glu 100, T. Bili, alk phos 1339, alb 3.4. Pelvic CT showed diffuse osseous metastatic disease with new acute nondisplaced fracture involving the right inferior pelvic ramus. Patient is admitted for further management and workup. General: non toxic, no distress, appears at stated age Derm: warm, dry Head: atraumatic, normocephalic, symmetric Eyes: EOMI, no lid lag, anicteric sclera Mouth: no lip lesion, mucus membranes moist Cardiovascular: S1S2 reg, no murmur Lungs: CTA bilateral, no rhonchi, no rales , no accessory muscle use Abdominal: soft, nontender to palpation, no guarding, no appreciable organomegaly Ext: no gross muscle atrophy, no edema, no contractures Neuro: no focal neuro deficits Psych: Alert, oriented, appropriate affect Based on my assessment of this patient, this patient meets a high complexity level of care. Patient has a [history of] with severe exacerbation or progression of disease which poses a threat to life or bodily function. Sclerotic lesions concerning for osseous metastatic disease: Oncology consult. Right inferior pelvic ramus fracture: Pain management with Dilaudid 1mg IV Q4H PRN. Fall precautions. PT and OT consult. Orthopedic surgery consult. Elevated alkaline phosphatase: Likely related to metastatic bone disease. Leukocytosis: Possibly reactive. No signs of active infection. Supratherapeutic INR: Unknown etiology. Prerenal azotemia: Encourage hydration by mouth. Elevated total bilirubin: Unknown etiology. Chronic conditions: Parkinson's, CAD, history of TIA, hypertension, BPH CODE STATUS: FULL CODE DVT Prophylaxis: Eliquis GI Prophylaxis: Designated medical POA if patient is not able to make medical decisions for the mselves: Chyna I have reviewed the following acura sales consultant notes: I have reviewed the results of the following tests: As above. I have ordered the following tests: I have discussed the care of this patient with the following independent historian: I have independently interpreted the following test below: Pelvic CT as above. I have discussed the management of this patient with the following physician: Past Medical History Past Medical History: CVA/TIA, Hearing Disorder / Deafness, Hypertension, Myocardial Infarction ([place]), Neurologic Disorder, Osteoarthritis (OA), Prostate Disorder Additional Past Medical History / Comment(s): URINARY LEAKAGE , back pain, Parkinson's Last Myocardial Infarction Date:: 2011 History of Any Multi-Drug Resistant Organisms: None Reported Past Surgical History: Heart Catheterization With Stent, Joint Replacement, Orthopedic Surgery, Tonsillectomy Additional Past Surgical History / Comment(s): TOTAL RIGHT KNEE AND TOTAL LEFT KNEE SURGERY. CARPAL TUNNEL RELEASE RIGHT WRIST Past Anesthesia/Blood Transfusion Reactions: No Reported Reaction Date of Last Stent Placement:: APPROXIMATE 2002 Past Psychological History: Depression Smoking Status: Current every day smoker Past Alcohol Use History: Rare Past Drug Use History: None Reported - Past Family History Father Family Medical History: Cancer Medications and Allergies Home Medications Medication Instructions Recorded Confirmed Type Apixaban [Eliquis] 5 mg PO BID 08/04/20 04/02/23 History Cholecalciferol (Vitamin D3) 50 mcg PO BID 08/04/20 04/02/23 History [Decara (2000 Iu) Vitamin D3] DULoxetine HCL [Cymbalta] 60 mg PO DAILY 08/04/20 04/02/23 History Tamsulosin [Flomax] 0.4 mg PO BID 08/04/20 04/02/23 History lisinopriL [Zestril] 20 mg PO DAILY 08/04/20 04/02/23 History Atorvastatin [Lipitor] 40 mg PO HS 01/24/23 04/02/23 History Carbidopa-Levodopa ER 50-200Mg 1 tab PO QID 01/24/23 04/02/23 History [Sinemet CR 50-200 mg] amantadine HCL [Amantadine] 100 mg PO BID 01/24/23 04/02/23 History rOPINIRole HCL [Requip] 1 mg PO HS 01/24/23 04/02/23 History HYDROcodone/APAP 7.5-325MG [[place] 1 tab PO Q6H 04/02/23 04/02/23 History 7.5-325] Allergies Allergy/AdvReac Type Severity Reaction Status Date / Time No Known Allergies Allergy Verified 04/02/23 11:52 Physical Exam Vitals: Vital Signs Temp Pulse Resp BP Pulse Ox 04/02/23 15:00 84 18 127/71 97 04/02/23 10:39 98 F 85 18 120/77 95 Intake and Output 04/02/23 04/02/23 04/02/23 06:59 14:59 22:59 Other: Weight 106.594 kg Results CBC & Chem 7: 04/02/23 13:45 04/02/23 13:45 Labs: Abnormal Lab Results - Last 24 Hours (Table) 04/02/23 04/02/23 04/02/23 Range/Units 13:45 13:45 13:45 WBC 12.4 H (3.8-10.6) k/uL Neutrophils # 8.0 H (1.3-7.7) k/uL PT 12.9 H (10.0-12.5) sec INR 1.2 H (<1.2) BUN 27 H (9-20) mg/dL Glucose 100 H (74-99) mg/dL Total Bilirubin 1.5 H (0.2-1.3) mg/dL Alkaline Phosphatase 1339 H (38-126) U/L Albumin 3.4 L (3.5-5.0) g/dL
--- NOTE | 2023-04-02 16:56 | CT ---
EXAMINATION TYPE: CT chest abdomen w con DATE OF EXAM: 04/02/2023 COMPARISON: None. HISTORY: Osseous metastatic disease, concern for malignancy CT DLP: 1953.3 mGycm. Automated Exposure Control for Dose Reduction was Utilized. CONTRAST: CT scan of the thorax and abdomen are performed with IV Contrast, patient injected with 80ml mL of Is ovue 300. FINDINGS: LUNGS: Bilateral opacities favor parenchymal fibrosis with both upper and lower lung involvement. Are as of underlying edema and/or acute infiltrate are not excluded. Low lung volumes are present. No ple ural effusion or pneumothorax is seen. MEDIASTINUM: Mild cardiomegaly. No pericardial effusion. LIVER/GB: Dependent 2.8 cm gallstone axial image 49. PANCREAS: No significant abnormality is seen. SPLEEN: No significant abnormality is seen. ADRENALS: No significant abnormality is seen. KIDNEYS: Some cortical thinning bilaterally. Large exophytic thin-walled cysts are present bilaterall y. Smaller thin-walled cyst in the left kidney are seen. Suspicion for 1.7 cm partially exophytic arti id mass versus lobulated kidney left kidney axial image 70. This shows some greater washout than [place] kidney on delayed images A few small central parapelvic cysts incidentally noted bilaterally. Santiago spect 2 mm nonobstructing calculus lower pole right kidney coronal image 58. BOWEL: No significant abnormality is seen. LYMPH NODES: No greater than 1cm abdominal lymph nodes are appreciated. Prominent but subcentimeter l ymph nodes in the retroperitoneum OSSEOUS STRUCTURES: Innumerable sclerotic lesions throughout the thoracolumbar spine consistent with osseous metastatic disease. Some lesions in the bilateral ribs are present. Sclerotic lesion in the s ternal xiphoid noted coronal image 20. OTHER: Mild to moderate calcified plaque of the infrarenal aorta. IMPRESSION: There is subtle 1.7 cm enhancing solid mass with washout midpole level of the left kidney worrisome for focal renal cell carcinoma. Known diffuse osseous metastatic disease is present. Othe r findings are present as detailed above.
[2023-04-02] MEDS: CARBIDOPA-LEVODOPA ER 50-200MG 1 EACH TABLET.ER PO SCH ×2 (17:21→21:02)
[2023-04-02] MEDS: SODIUM CHLORIDE 0.9% 1,000 ML IV SCH (17:47)
[2023-04-02] MEDS ORDERED: ATORVASTATIN 40 MG TAB PO SCH (21:00)
[2023-04-02] MEDS: CHOLECALCIFEROL 25 MCG (1000 IU) TABLET PO SCH (21:03)
[2023-04-02] MEDS: TAMSULOSIN 0.4 MG CAP.ER.24H PO SCH (21:03)
[2023-04-02] MEDS: APIXABAN 5 MG TAB PO SCH (21:03)
--- NOTE | 2023-04-02 21:46 | P.CONS ---
History of Present Illness - Reason for Consult Consult date: 04/02/23 Osseous metastatic disease - Chief Complaint Right hip pain - History of Present Illness Mr. Grayson is an 82-year-old gentleman with a past medical history significant for Parkinson's disease and cigarette smoking who oncology is consulted with regards to concerns for metastatic malignancy. He notes having progressive right hip pain over the past 3 to 4 months, which has resulted in progressive difficulty in ambulation. He had been ambulating with the assistance of a cane and subsequently required assistance with a walker. Now, he is only able to ambulate a few steps without having significant pain. During this time, he is also noted anorexia and 30 to 40 pound weight loss. He does have occasional difficulty passing urine with nocturia and urinary hesitancy, but denies any hematuria. He did serve in the [employer] from [id number], denies any agent orange exposure. He currently smokes Marlene small cigars that are the size of cigarettes on a daily basis for the past 6 to 7 years. He previously smoked cigarettes in the [employer], but had not smoked for 35 years prior to smoking the small cigars. On admission, CT of the pelvis noted diffuse sclerosis of the sacrum and pelvis. There is also an acute nondisplaced fracture involving the right inferior pelvic ramus. Labs were significant for alkaline phosphatase of 1305 with normal creatinine and liver enzymes. CBC revealed WBC 10.5, hemoglobin 14.2, platelets 197. He was given Dilaudid and Toradol and admitted to internal medicine for additional management recommendations. Review of Systems 14 point review of systems was conducted with pertinent positives and negatives as noted per HPI Past Medical History Past Medical History: CVA/TIA, Hearing Disorder / Deafness, Hypertension, Myocardial Infarction ([place]), Neurologic Disorder, Osteoarthritis (OA), Prostate Disorder Additional Past Medical History / Comment(s): URINARY LEAKAGE , back pain, Parkinson's Last Myocardial Infarction Date:: 2011 History of Any Multi-Drug Resistant Organisms: None Reported Past Surgical History: Heart Catheterization With Stent, Joint Replacement, Orthopedic Surgery, Tonsillectomy Additional Past Surgical History / Comment(s): TOTAL RIGHT KNEE AND TOTAL LEFT KNEE SURGERY. CARPAL TUNNEL RELEASE RIGHT WRIST Past Anesthesia/Blood Transfusion Reactions: No Reported Reaction Date of Last Stent Placement:: APPROXIMATE 2002 Past Psychological History: Depression Smoking Status: Current every day smoker Past Alcohol Use History: Rare Past Drug Use History: None Reported - Past Family History Father Family Medical History: Cancer Medications and Allergies Home Medications Medication Instructions Recorded Confirmed Type Apixaban [Eliquis] 5 mg PO BID 08/04/20 04/02/23 History Cholecalciferol (Vitamin D3) 50 mcg PO BID 08/04/20 04/02/23 History [Decara (2000 Iu) Vitamin D3] DULoxetine HCL [Cymbalta] 60 mg PO DAILY 08/04/20 04/02/23 History Tamsulosin [Flomax] 0.4 mg PO BID 08/04/20 04/02/23 History lisinopriL [Zestril] 20 mg PO DAILY 08/04/20 04/02/23 History Atorvastatin [Lipitor] 40 mg PO HS 01/24/23 04/02/23 History Carbidopa-Levodopa ER 50-200Mg 1 tab PO QID 01/24/23 04/02/23 History [Sinemet CR 50-200 mg] amantadine HCL [Amantadine] 100 mg PO BID 01/24/23 04/02/23 History rOPINIRole HCL [Requip] 1 mg PO HS 01/24/23 04/02/23 History HYDROcodone/APAP 7.5-325MG [[place] 1 tab PO Q6H 04/02/23 04/02/23 History 7.5-325] Allergies Allergy/AdvReac Type Severity Reaction Status Date / Time No Known Allergies Allergy Verified 04/02/23 11:52 Physical Exam Vitals: Vital Signs Temp Pulse Pulse Resp BP BP BP 04/02/23 17:15 64 18 04/02/23 17:14 97.1 F L 64 18 90/50 90/61 04/02/23 15:00 84 18 127/71 04/02/23 10:39 98 F 85 18 120/77 Pulse Ox 04/02/23 17:15 04/02/23 17:14 97 04/02/23 15:00 97 04/02/23 10:39 95 Intake and Output 04/02/23 04/02/23 04/02/23 06:59 14:59 22:59 Other: Voiding Method Urinal Weight 106.594 kg - Constitutional General appearance: cooperative, no acute distress - EENT Eyes: EOMI - Respiratory Respiratory: bilateral: CTA - Cardiovascular Rhythm: regular - Gastrointestinal General gastrointestinal: distended, soft, no tenderness - Integumentary Integumentary: no rash - Neurologic Tremors in the hands bilaterally secondary to Parkinson's disease Results CBC & Chem 7: 04/02/23 13:45 04/02/23 13:45 Labs: Abnormal Lab Results - Last 24 Hours (Table) 04/02/23 04/02/23 04/02/23 Range/Units 13:45 13:45 13:45 WBC 12.4 H (3.8-10.6) k/uL Neutrophils # 8.0 H (1.3-7.7) k/uL PT 12.9 H (10.0-12.5) sec INR 1.2 H (<1.2) BUN 27 H (9-20) mg/dL Glucose 100 H (74-99) mg/dL Total Bilirubin 1.5 H (0.2-1.3) mg/dL Alkaline Phosphatase 1339 H (38-126) U/L Albumin 3.4 L (3.5-5.0) g/dL Assessment and Plan (1) Inferior pubic ramus fracture Current Visit: Yes Status: Acute Code(s): S32.599A - OTH FRACTURE OF UNSP PUBIS, INIT ENCNTR FOR CLOSED FRACTURE SNOMED Code(s): 738516499 (2) Metastatic disease Current Visit: Yes Status: Acute Code(s): C79.9 - SECONDARY MALIGNANT NEOPLASM OF UNSPECIFIED SITE SNOMED Code(s): 044033051 Plan: #Osseous metastatic disease -Noted to have progressive pain in the right hip in the setting of anorexia and unexplained 30 to 40 pound weight loss -CT pelvis on admission notable for acute nondisplaced fracture involving the right inferior pelvic ramus with several areas of diffuse sclerosis in the sacru m and pelvis concerning for metastases -Given the findings on CT imaging in addition to anorexia and unexplained weight loss prior to presentation, there is concern for malignancy -He has had urinary hesitancy and nocturia with no evidence of other sites of focal bone pain, hypercalcemia, or impaired kidney function -Clinical course and concern for malignancy was discussed with Mr. Robles -I did recommend CT chest/abdomen as well as nuclear medicine bone scan for additional assessment of occult malignancy -PSA was also recommended -At this time, we will hold on labs for multiple myeloma given normal cell counts and kidney function without hypercalcemia -He is agreeable to workup for malignancy, but notes he would not want any interventions such as IV chemotherapy Leta Rich MD Time with Patient: Greater than 30
[2023-04-03] MEDS: HYDROcodone/APAP 7.5-325MG 1 EACH TAB PO SCH ×3 (05:56→16:58)
[2023-04-03] MEDS: SODIUM CHLORIDE 0.9% 1,000 ML IV SCH (06:35)
[2023-04-03] MEDS ORDERED: DULoxetine HCL 60 MG CAPSULE.DR PO SCH (09:00)
[2023-04-03] MEDS ORDERED: lisinopriL 20 MG TAB PO SCH (09:00)
[2023-04-03] MEDS ORDERED: BACITRACIN OINT 1 EACH PACKET TOPICAL ONE (09:16)
[2023-04-03] MEDS: CHOLECALCIFEROL 25 MCG (1000 IU) TABLET PO SCH (09:17)
[2023-04-03] MEDS: CARBIDOPA-LEVODOPA ER 50-200MG 1 EACH TABLET.ER PO SCH ×3 (09:18→16:58)
[2023-04-03] MEDS: APIXABAN 5 MG TAB PO SCH (09:19)
[2023-04-03] MEDS: TAMSULOSIN 0.4 MG CAP.ER.24H PO SCH (09:19)
--- NOTE | 2023-04-03 09:32 | P.CNOR ---
History of Present Illness - [facility] Consult date: 04/03/23 Consult reason: fracture (Right pubic rami fractures ) History of present illness: This is an 82-year-old male who presented to the emergency department with complaint of increasing right hip and groin pain over the past couple of weeks. He states that he did have a fall onto his right side recently. However, he states that he was having significant pain prior to his fall. In the emergency department the patient had x-rays and CT of the pelvis which showed some bony sclerosis concerning for possible metastatic disease. He was also found to have a pubic rami fracture on the right. He is admitted to internal medicine for further workup and we're consulted for orthopedic evaluation of his right hip pain. Past Medical History Past Medical History: CVA/TIA, Hearing Disorder / Deafness, Hypertension, Myocardial Infarction ([place]), Neurologic Disorder, Osteoarthritis (OA), Prostate Disorder Additional Past Medical History / Comment(s): URINARY LEAKAGE , back pain, Parkinson's Last Myocardial Infarction Date:: 2011 History of Any Multi-Drug Resistant Organisms: None Reported Past Surgical History: Heart Catheterization With Stent, Joint Replacement, Orthopedic Surgery, Tonsillectomy Additional Past Surgical History / Comment(s): TOTAL RIGHT KNEE AND TOTAL LEFT KNEE SURGERY. CARPAL TUNNEL RELEASE RIGHT WRIST Past Anesthesia/Blood Transfusion Reactions: No Reported Reaction Date of Last Stent Placement:: APPROXIMATE 2002 Past Psychological History: Depression Smoking Status: Current every day smoker Past Alcohol Use History: Rare Past Drug Use History: None Reported - Past Family History Father Family Medical History: Cancer Medications and Allergies Home Medications Medication Instructions Recorded Confirmed Type Apixaban [Eliquis] 5 mg PO BID 08/04/20 04/02/23 History Cholecalciferol (Vitamin D3) 50 mcg PO BID 08/04/20 04/02/23 History [Decara (2000 Iu) Vitamin D3] DULoxetine HCL [Cymbalta] 60 mg PO DAILY 08/04/20 04/02/23 History Tamsulosin [Flomax] 0.4 mg PO BID 08/04/20 04/02/23 History lisinopriL [Zestril] 20 mg PO DAILY 08/04/20 04/02/23 History Atorvastatin [Lipitor] 40 mg PO HS 01/24/23 04/02/23 History Carbidopa-Levodopa ER 50-200Mg 1 tab PO QID 01/24/23 04/02/23 History [Sinemet CR 50-200 mg] amantadine HCL [Amantadine] 100 mg PO BID 01/24/23 04/02/23 History rOPINIRole HCL [Requip] 1 mg PO HS 01/24/23 04/02/23 History HYDROcodone/APAP 7.5-325MG [[place] 1 tab PO Q6H 04/02/23 04/02/23 History 7.5-325] Allergies Allergy/AdvReac Type Severity Reaction Status Date / Time No Known Allergies Allergy Verified 04/02/23 11:52 Physical Examination This is a pleasant 82-year-old male in no acute distress. He is alert and oriented 3. Exam of the head neck reveal no obvious deformity. He has fairly good cervical spine motion without difficulty or pain. There is no tenderness to palpation about cervical spine or paraspinal musculature. Exam of the upper extremities reveals no obvious deformity. He has full motion to the shoulders, elbows, wrists and fingers bilaterally. Neurovascular status to the upper extremities is intact. Exam of the lumbar spine and pelvis reveal no obvious deformities. He has minimal tenderness with palpation about the lumbar spine. There is mild discomfort with compression of the pelvis. Exam of the lower extremities reveals no obvious deformity or shortening. He has difficulty raising the right leg off the bed independently injury to right groin pain. There is mild discomfort with logroll and internal/external rotation of the right hip. He has full foot and ankle motion without difficulty or pain. Neurovascular status to the lower extremities is intact. Results CT of the pelvis and right hip reveals some sclerotic changes suspicious for bony metastatic disease. There are subtle superior and inferior rami fractures on the right. No obvious hip or femur fracture noted. - Labs Labs: Abnormal Lab Results - Last 24 Hours (Table) 04/02/23 04/02/23 04/02/23 Range/Units 13:45 13:45 13:45 WBC 12.4 H (3.8-10.6) k/uL Neutrophils # 8.0 H (1.3-7.7) k/uL PT 12.9 H (10.0-12.5) sec INR 1.2 H (<1.2) BUN 27 H (9-20) mg/dL Glucose 100 H (74-99) mg/dL Total Bilirubin 1.5 H (0.2-1.3) mg/dL Alkaline Phosphatase 1339 H (38-126) U/L Albumin 3.4 L (3.5-5.0) g/dL H & H 04/02/23 Range/Units 13:45 Hgb 14.0 (13.0-17.5) gm/dL Hct 42.3 (39.0-53.0) % Coagulation 04/02/23 Range/Units 13:45 INR 1.2 H (<1.2) Result Diagrams: 04/02/23 13:45 04/02/23 13:45 Assessment and Plan (1) Inferior pubic ramus fracture Current Visit: Yes Status: Acute Code(s): S32.599A - OTH FRACTURE OF UNSP PUBIS, INIT ENCNTR FOR CLOSED FRACTURE SNOMED Code(s): 971649712 (2) Metastatic disease Current Visit: Yes Status: Acute Code(s): C79.9 - SECONDARY MALIGNANT NEOPLASM OF UNSPECIFIED SITE SNOMED Code(s): 273010763 Plan: The clinical and radiographic findings are discussed with the patient. Given options are discussed. There is no surgical indication for this type of fracture. He may be up weightbearing as tolerated with walker. He should follow-up in about 4 weeks for repeat x-rays and evaluation.
--- NOTE | 2023-04-03 11:54 | P.PN ---
Subjective Progress Note Date: 04/03/23 82-year-old male with PMH of Parkinson's, CAD, history of TIA, hypertension, BPH since ED for right hip pain. He reports mechanical fall in December for which he has been dealing with lower back pain issues. He has seen a chiropractor. For the past 2 weeks, patient reports right hip pain, sore in nature, sharp and stabbing with ambulation with radiation to the right knee, 20 out of 10 severity. He has difficulty ambulating with the aid of a walker as a result. In the ED, he underwent extensive evaluation. BP 120/77, HR 85, RR 18, T 98 F, 95% on room air. CBC showed a WBC count of 12.4. INR 1.2. CMP BUN 27, glu 100, T. Bili, alk phos 1339, alb 3.4. Pelvic CT showed diffuse osseous metastatic disease with new acute nondisplaced fracture involving the right inferior pelvic ramus. Patient is admitted for further management and workup. 04/03 Patient was seen and examined. Pain well controlled. He is hesitant on further workup with regard to his possible cancer. His life has been limited by his Parkinsons. Oncology consulted, CT Chest Abd ordered which shows 1.7 cm solid mass in the left kidney. Bone scan is ordered along with PSA as well. Orthopedic surgery recommends conservative management and follow up in 4 weeks. General: non toxic, no distress, appears at stated age Derm: warm, dry Head: atraumatic, normocephalic, symmetric Eyes: EOMI, no lid lag, anicteric sclera Mouth: no lip lesion, mucus membranes moist Cardiovascular: S1S2 reg, no murmur Lungs: CTA bilateral, no rhonchi, no rales , no accessory muscle use Abdominal: soft, nontender to palpation, no guarding, no appreciable organomegaly Ext: no gross muscle atrophy, no edema, no contractures Neuro: no focal neuro deficits Psych: Alert, oriented, appropriate affect Based on my assessment of this patient, this patient meets a moderate complexity level of care. Patient has a pubic rami fracture in the setting of sclerotic lesions in the pelvis concerning for metastatic disease which poses a threat to life or bodily function. Sclerotic lesions concerning for osseous metastatic disease: PSA pending. Oncology consult. Renal mass: Likely source of primary malignancy. Will need biopsy for diagnosis, patient hesitant, possible workup outpatient if patient wants. Right inferior pelvic ramus fracture: Pain management with Dilaudid 1mg IV Q4H PRN. Fall precautions. PT and OT consult. Orthopedic surgery on board. Elevated alkaline phosphatase: Likely related to metastatic bone disease. Leukocytosis: Possibly reactive. No signs of active infection. Supratherapeutic INR: Unknown etiology. Prerenal azotemia: NS at 75 cc/hr. Elevated total bilirubin: Unknown etiology. Chronic conditions: Parkinson's, CAD, history of TIA, hypertension, BPH CODE STATUS: FULL CODE DVT Prophylaxis: Eliquis GI Prophylaxis: Designated medical POA if patient is not able to make medical decisions for themselves: Chyna I have reviewed the following market research consultant notes: Oncology, Ortho note. I have reviewed the results of the following tests: CT Chest Abd. I have ordered the following tests: CBC, CMP. Pending: Bone scan, PSA. I have discussed the care of this patient with the following independent historian: I have independently interpreted the following test below: I have discussed the management of this patient with the following physician: Objective - Vital Signs Vital signs: Vital Signs Temp 98 F 04/03/23 08:03 Pulse 77 04/03/23 08:03 Resp 18 04/03/23 08:03 BP 104/69 04/03/23 08:03 Pulse Ox 96 04/03/23 08:03 FiO2 Intake & Output 04/02/23 04/03/23 04/03/23 18:59 06:59 18:59 Weight 106.594 kg Other: Voiding Method Urinal Urinal # Voids 2 - Labs CBC & Chem 7: 04/02/23 13:45 04/02/23 13:45 Labs: Abnormal Lab Results - Last 24 Hours (Table) 04/02/23 04/02/23 04/02/23 Range/Units 13:45 13:45 13:45 WBC 12.4 H (3.8-10.6) k/uL Neutrophils # 8.0 H (1.3-7.7) k/uL PT 12.9 H (10.0-12.5) sec INR 1.2 H (<1.2) BUN 27 H (9-20) mg/dL Glucose 100 H (74-99) mg/dL Total Bilirubin 1.5 H (0.2-1.3) mg/dL Alkaline Phosphatase 1339 H (38-126) U/L Albumin 3.4 L (3.5-5.0) g/dL
--- NOTE | 2023-04-03 12:29 | NM ---
EXAMINATION TYPE: NM bone scan whole body DATE OF EXAM: 04/03/2023 12:04 PM CLINICAL INDICATION:Male, 82 years old with history of Osseous metastatic disease, concern for malign shannon; COMPARISON: 04/02/2023. TECHNIQUE: Intravenous administration 25.3 mCi Tc 99m MDP followed by multiple scintigraphic images o f the appendicular and axial skeleton. Additionally, small field of view planar anterior and posterio r images of the lumbosacral spine and pelvis. Lastly, coronal, transverse, and sagittal SPECT images of the lumbosacral spine and pelvis were generated for review.Lastly, small [id number] anterior, p osterior and lateral views of the chest were submitted for review. Images acquired 3 hours post injection. FINDINGS: Diffuse abnormal radiotracer uptake throughout the ribs, shoulders, pelvis and spine. There is increased uptake within the bilateral shoulder, sternoclavicular, and sacroiliac joints con sistent with degenerative changes. No other photopenic areas or areas of increased activity are ident ified. Physiologic radiotracer activity is demonstrated in the kidneys and bladder. IMPRESSION: Diffuse metastatic disease.
[2023-04-03 16:31] VITALS: BP 129/80; PULSE 77; RESP 18; TEMP 97.6
--- NOTE | 2023-04-06 09:34 | P.DS ---
Providers Date of admission: 04/02/23 13:30 Expected date of discharge: 04/03/23 Attending physician: Dustin Estes MD Consults: 04/02/23 13:22 Consult Physician Urgent Consulting Provider: Trey Yan Consult Reason/Comments: Osseous metastatic disease on pelvic CT, new onset Do you want consulting provider notified?: Yes Consult Physician Urgent Consulting Provider: Tereso Fox Consult Reason/Comments: Inferior pubic ramus fracture, likely pathologic Do you want consulting provider notified?: Yes Primary care physician: [facility] Course: 82-year-old male with PMH of Parkinson's, CAD, history of TIA, hypertension, BPH since ED for right hip pain. He reports mechanical fall in December for which he has been dealing with lower back pain issues. He has seen a chiropractor. For the past 2 weeks, patient reports right hip pain, sore in nature, sharp and stabbing with ambulation with radiation to the right knee, 20 out of 10 severity. He has difficulty ambulating with the aid of a walker as a result. In the ED, he underwent extensive evaluation. BP 120/77, HR 85, RR 18, T 98 F, 95% on room air. CBC showed a WBC count of 12.4. INR 1.2. CMP BUN 27, glu 100, T. Bili, alk phos 1339, alb 3.4. Pelvic CT showed diffuse osseous metastatic disease with new acute nondisplaced fracture involving the right inferior pelvic ramus. Patient is admitted for further management and workup. 04/03 Patient was seen and examined. Pain well controlled. He is hesitant on further workup with regard to his possible cancer. His life has been limited by his Parkinsons. Oncology consulted, CT Chest Abd ordered which shows 1.7 cm solid mass in the left kidney. Bone scan confirms metastatic bone disease. PSA is ordered as well. He will follow up with Oncology in the outpatient setting for further workup and treatment if he decides to go down that road. Orthopedic surgery recommends conservative management and follow up in 4 weeks. Plans to discharge the patient home today. General: non toxic, no distress, appears at stated age Derm: warm, dry Head: atraumatic, normocephalic, symmetric Eyes: EOMI, no lid lag, anicteric sclera Mouth: no lip lesion, mucus membranes moist Cardiovascular: S1S2 reg, no murmur Lungs: CTA bilateral, no rhonchi, no rales , no accessory muscle use Abdominal: soft, nontender to palpation, no guarding, no appreciable organomegaly Ext: no gross muscle atrophy, no edema, no contractures Neuro: no focal neuro deficits Psych: Alert, oriented, appropriate affect Discharge Diagnosis: Sclerotic lesions concerning for osseous metastatic disease Renal mass Right inferior pelvic ramus fracture Elevated alkaline phosphatase Leukocytosis Supratherapeutic INR Prerenal azotemia Elevated total bilirubin Chronic conditions: Parkinson's, CAD, history of TIA, hypertension, BPH This complex discharge took 35 minutes to complete. Patient Condition at Discharge: Stable Plan - Discharge Summary Discharge Rx Participant: No New Discharge Prescriptions: Continue Tamsulosin [Flomax] 0.4 mg PO BID DULoxetine HCL [Cymbalta] 60 mg PO DAILY rOPINIRole HCL [Requip] 1 mg PO HS Apixaban [Eliquis] 5 mg PO BID lisinopriL [Zestril] 20 mg PO DAILY Cholecalciferol (Vitamin D3) [Decara (2000 Iu) Vitamin D3] 50 mcg PO BID amantadine HCL [Amantadine] 100 mg PO BID Carbidopa-Levodopa ER 50-200Mg [Sinemet CR 50-200 mg] 1 tab PO QID Atorvastatin [Lipitor] 40 mg PO HS HYDROcodone/APAP 7.5-325MG [[place] 7.5-325] 1 tab PO Q6H Discharge Medication List Apixaban [Eliquis] 5 mg PO BID 08/04/20 [History] Cholecalciferol (Vitamin D3) [Decara (2000 Iu) Vitamin D3] 50 mcg PO BID 08/04/20 [History] DULoxetine HCL [Cymbalta] 60 mg PO DAILY 08/04/20 [History] Tamsulosin [Flomax] 0.4 mg PO BID 08/04/20 [History] lisinopriL [Zestril] 20 mg PO DAILY 08/04/20 [History] Atorvastatin [Lipitor] 40 mg PO HS 01/24/23 [History] Carbidopa-Levodopa ER 50-200Mg [Sinemet CR 50-200 mg] 1 tab PO QID 01/24/23 [History] amantadine HCL [Amantadine] 100 mg PO BID 01/24/23 [History] rOPINIRole HCL [Requip] 1 mg PO HS 01/24/23 [History] HYDROcodone/APAP 7.5-325MG [[place] 7.5-325] 1 tab PO Q6H 04/02/23 [History] Follow up Appointment(s)/Referral(s): Tereso Fox DO [Doctor of Osteopathic Medicine] - 4 Weeks Leta Rich MD [STAFF PHYSICIAN] - 1 Week [facility],Clinic [Primary Care Provider] - 1-2 days Activity/Diet/Wound Care/Special Instructions: Weight as tolerated with walker. Follow-up with Dr. Fox 4 weeks for repeat x-ray. ONCOLOGY WILL CALL YOU TO FOLLOW UP ON TEST RESULTS AND TO SCHEDULE REST OF TESTING Discharge Disposition: HOME SELF-CARE
== END 2023-04-03 18:46 | disposition home or self-care (01) | DRG 536 ==
LOC: EC 10:38 → 4SSUR 13:30 → 1SOBS 04-03 11:12
PROVIDERS: ADMIT Student in an Organized Health Care Education/Training Program; ATTEND Student in an Organized Health Care Education/Training Program
DX: S32.591A Other specified fracture of right pubis, initial encounter for closed fracture (principal); C79.51 Secondary malignant neoplasm of bone; C64.2 Malignant neoplasm of left kidney, except renal pelvis; W18.30XA Fall on same level, unspecified, initial encounter; R79.1 Abnormal coagulation profile; Z79.899 Other long term (current) drug therapy; M19.90 Unspecified osteoarthritis, unspecified site; Z86.73 Personal history of transient ischemic attack (TIA), and cerebral infarction without residual deficits; Z79.01 Long term (current) use of anticoagulants; Z91.81 History of falling; N40.1 Benign prostatic hyperplasia with lower urinary tract symptoms; I25.2 Old myocardial infarction; I25.10 Atherosclerotic heart disease of native coronary artery without angina pectoris; I10 Essential (primary) hypertension; H91.90 Unspecified hearing loss, unspecified ear; F32.A Depression, unspecified; F17.210 Nicotine dependence, cigarettes, uncomplicated; G20.A1 Parkinson's disease without dyskinesia, without mention of fluctuations
CPT/HCPCS: 71260; 72192; 73502; 74160; 78306; 80053; 84153; 85025; 85610; 85730; 96361; 96374; 96375; 99285; 99406

== ENCOUNTER 2023-04-23 06:51 | Emergency (ER) | payer OTHER ==
[2023-04-23] MEDS ORDERED: SODIUM CHLORIDE 0.9% 500 ML 500 ML IV ONE (07:05)
[2023-04-23 07:07] LABS: Glucose,Whole Blood 89 mg/dL (70-110)
--- NOTE | 2023-04-23 07:09 | ED ---
Altered Mental Status HPI - General Chief Complaint: Altered Mental Status Stated Complaint: AMS Time Seen by Provider: 04/23/23 06:59 Source: family, EMS, RN notes reviewed Mode of arrival: EMS Limitations: altered mental status - History of Present Illness Initial Comments: 82-year-old male presents emergency department via EMS from home for altered me ntal status. Patient had recent hospitalization for pubic rami fracture is found to have metastatic cancer of unknown origin. Patient reported acute mental status change last 24 hours is reported that he has a strong smell of urine, odor concerning for possible UTI. No falls no focal deficits. Patient has agitation, unable to provide any history at this time. - Related Data Home Medications Medication Instructions Recorded Confirmed Apixaban [Eliquis] 5 mg PO BID 08/04/20 04/23/23 Cholecalciferol (Vitamin D3) 50 mcg PO BID 08/04/20 04/23/23 [Decara (2000 Iu) Vitamin D3] DULoxetine HCL [Cymbalta] 60 mg PO DAILY 08/04/20 04/23/23 Tamsulosin [Flomax] 0.4 mg PO BID 08/04/20 04/23/23 lisinopriL [Zestril] 20 mg PO DAILY 08/04/20 04/23/23 Atorvastatin [Lipitor] 40 mg PO HS 01/24/23 04/23/23 Carbidopa-Levodopa ER 50-200Mg 1 tab PO QID 01/24/23 04/23/23 [Sinemet CR 50-200 mg] amantadine HCL [Amantadine] 100 mg PO BID 01/24/23 04/23/23 rOPINIRole HCL [Requip] 1 mg PO HS 01/24/23 04/23/23 HYDROcodone/APAP 7.5-325MG [[place] 1 tab PO Q6H 04/02/23 04/23/23 7.5-325] Allergies Allergy/AdvReac Type Severity Reaction Status Date / Time No Known Allergies Allergy Verified 04/23/23 07:57 Review of Systems ROS Statement: Those systems with pertinent positive or pertinent negative responses have been documented in the HPI. ROS Other: All systems not noted in ROS Statement are negative. Past Medical History Past Medical History: CVA/TIA, Hearing Disorder / Deafness, Hypertension, My ocardial Infarction (MO), Neurologic Disorder, Osteoarthritis (OA), Prostate Disorder Additional Past Medical History / Comment(s): URINARY LEAKAGE , back pain, Parkinson's Last Myocardial Infarction Date:: 2011 History of Any Multi-Drug Resistant Organisms: None Reported Past Surgical History: Heart Catheterization With Stent, Joint Replacement, Orthopedic Surgery, Tonsillectomy Additional Past Surgical History / Comment(s): TOTAL RIGHT KNEE AND TOTAL LEFT KNEE SURGERY. CARPAL TUNNEL RELEASE RIGHT WRIST Past Anesthesia/Blood Transfusion Reactions: No Reported Reaction Date of Last Stent Placement:: APPROXIMATE 2002 Past Psychological History: Depression Smoking Status: Current every day smoker - Past Family History Father Family Medical History: Cancer General Exam Limitations: altered mental status General appearance: alert, in no apparent distress Head exam: Present: atraumatic, normocephalic, normal inspection Eye exam: Present: normal appearance, PERRL, EOMI. Absent: scleral icterus, conjunctival injection, periorbital swelling ENT exam: Present: normal oropharynx. Absent: normal exam Neck exam: Present: normal inspection, full ROM. Absent: tenderness, meningismus, lymphadenopathy Respiratory exam: Present: normal lung sounds bilaterally. Absent: respiratory distress, wheezes, rales, rhonchi, stridor Cardiovascular Exam: Present: normal rhythm, tachycardia, normal heart sounds. Absent: bradycardia, systolic murmur, diastolic murmur, rubs, gallop, clicks GI/Abdominal exam: Present: soft, normal bowel sounds. Absent: distended, tenderness, guarding, rebound, rigid Neurological exam: Absent: alert, oriented X3 Skin exam: Present: warm, dry, intact, normal color. Absent: rash Course Vital Signs 04/23/23 04/23/23 04/23/23 06:54 10:03 11:12 Temperature 97.8 F Pulse Rate 110 H Respiratory 24 Rate Blood Pressure 169/93 120/96 O2 Sat by Pulse 99 93 L 98 Oximetry Medical Decision Making - Medical Decision Making Was pt. sent in by a medical professional or institution (, PA, VARNISH MELTER HELPER, urgent care, hospital, or [facility]...) When possible be specific @ -No Did you speak to anyone other than the patient for history (EMS, parent, family, police, friend...)? What history was obtained from this source @ -[ fighting all history Did you review nursing and triage notes (agree or disagree)? Why? @ -I reviewed and agree with nursing and triage notes Were old charts reviewed (outside hosp., previous admission, EMS record, old EKG, old radiological studies, urgent care reports/EKG's, [facility] records)? Report findings @ -[Reviewed recent admission, laboratory studies and consults Differential Diagnosis (chest pain, altered mental status, abdominal pain women, abdominal pain men, vaginal bleeding, weakness, fever, dyspnea, syncope, headache, dizziness, GI bleed, back pain, seizure, CVA, palpatations, mental health, musculoskeletal)? @ -Metastatic cancer, differential Altered Mental Status: Hypoglycemia, DKA, hypercapnia, ETOH, overdose, CO poisoning, trauma, myxedema coma, HTN encephalopathy, infection, encephalitis, psychosis, intercranial hemorrhage, hepatic encephalopathy, meningitis, CVA, this is not meant to be an all-inclusive list EKG interpreted by me (3pts min.). @ -[As above X-rays interpreted by me (1pt min.). @ -None done CT interpreted by me (1pt min.). @ -CT brain showing possible metastatic disease left parietal to occipital motion artifact causing limited study e U/S interpreted by me (1pt. min.). @ -None done What testing was considered but not performed or refused? (CT, X-rays, U/S, labs)? Why? @ -None What meds were considered but not given or refused? Why? @ -None Did you discuss the management of the patient with other professionals (professionals i.e. , PA, VARNISH MELTER HELPER, lab, RT, psych nurse, social studies teacher, glass sander, teacher, artillery officer, bilingual case manager)? Give summary @ -Hospice, sound physician for admission and further evaluation of metastatic disease Was smoking cessation discussed for >3mins.? @ -No Was critical care preformed (if so, how long)? @ -No Were there social determinants of health that impacted care today? How? (Homelessness, low income, unemployed, alcoholism, drug addiction, transportatio n, low edu. Level, literacy, decrease access to med. care, alf, rehab)? @ -No Was there de-escalation of care discussed even if they declined (Discuss DNR or withdrawal of care, Hospice)? DNR status @ -No What co-morbidities impacted this encounter? (DM, HTN, Smoking, COPD, CAD, Cancer, CVA, ARF, Chemo, Hep., AIDS, mental health diagnosis, sleep apnea, morbid obesity)? @ -None Was patient admitted / discharged? Hospital course, mention meds given and route, prescriptions, significant lab abnormalities, going to OR and other pertinent info. @ -[Patient will be admitted GIP after he was evaluated by hospice. Patient has metastatic disease to the brain causing increasing confusion, altered mental status. Undiagnosed new problem with uncertain prognosis? @ -Yes Drug Therapy requiring intensive monitoring for toxicity (Heparin, Nitro, Insulin, Cardizem)? @ -No Were any procedures done? @ -No Diagnosis/symptom? @ -[Metastatic cancer Acute, or Chronic, or Acute on Chronic? @ -Acute Uncomplicated (without systemic symptoms) or Complicated (systemic symptoms)? @ -[Complicated Side effects of treatment? @ -No Exacerbation, Progression, or Severe Exacerbation? @ -No Poses a threat to life or bodily function? How? (Chest pain, USA, MO, pneumonia, PE, COPD, DKA, ARF, appy, cholecystitis, CVA, Diverticulitis, Homicidal, Suicidal, threat to staff... and all critical care pts) @ -Yes metastatic cancer - Lab Data Result diagrams: 04/23/23 07:21 04/23/23 07:21 Lab Results 04/23/23 04/23/23 04/23/23 Range/Units 07:05 07:21 07:21 WBC 14.6 H (3.8-10.6) k/uL RBC 4.81 (4.30-5.90) m/uL Hgb 14.4 (13.0-17.5) gm/dL Hct 43.0 (39.0-53.0) % MCV 89.5 (80.0-100.0) fL MCH 30.0 (25.0-35.0) pg MCHC 33.6 (31.0-37.0) g/dL RDW 13.8 (11.5-15.5) % Plt Count 147 L (150-450) k/uL MPV 10.1 Neutrophils % 67 % Lymphocytes % 22 % Monocytes % 8 % Eosinophils % 1 % Basophils % 1 % Neutrophils # 9.8 H (1.3-7.7) k/uL Lymphocytes # 3.2 (1.0-4.8) k/uL Monocytes # 1.1 H (0-1.0) k/uL Eosinophils # 0.1 (0-0.7) k/uL Basophils # 0.1 (0-0.2) k/uL PT 14.6 H (10.0-12.5) sec INR 1.4 H (<1.2) APTT 25.4 (22.0-30.0) sec Sodium (137-145) mmol/L Potassium (3.5-5.1) mmol/L Chloride (98-107) mmol/L Carbon Dioxide (22-30) mmol/L Anion Gap mmol/L BUN (9-20) mg/dL Creatinine (0.66-1.25) mg/dL Est GFR (CKD-EPI)AfAm (>60 ml/min/1.73 sqM) Est GFR (CKD-EPI)NonAf (>60 ml/min/1.73 sqM) Glucose (74-99) mg/dL POC Glucose (mg/dL) 89 (70-110) mg/dL POC Glu Credit Interviewer ID SuarezCal Calcium (8.4-10.2) mg/dL Total Bilirubin (0.2-1.3) mg/dL AST (17-59) U/L ALT (4-49) U/L Alkaline Phosphatase (38-126) U/L Ammonia (<30) umol/L Troponin I (0.000-0.034) ng/mL Total Protein (6.3-8.2) g/dL Albumin (3.5-5.0) g/dL 04/23/23 04/23/23 04/23/23 Range/Units 07:21 07:21 07:21 WBC (3.8-10.6) k/uL RBC (4.30-5.90) m/uL Hgb (13.0-17.5) gm/dL Hct (39.0-53.0) % MCV (80.0-100.0) fL MCH (25.0-35.0) pg MCHC (31.0-37.0) g/dL RDW (11.5-15.5) % Plt Count (150-450) k/uL MPV Neutrophils % % Lymphocytes % % Monocytes % % Eosinophils % % Basophils % % Neutrophils # (1.3-7.7) k/uL Lymphocytes # (1.0-4.8) k/uL Monocytes # (0-1.0) k/uL Eosinophils # (0-0.7) k/uL Basophils # (0-0.2) k/uL PT (10.0-12.5) sec INR (<1.2) APTT (22.0-30.0) sec Sodium 141 (137-145) mmol/L Potassium 4.1 (3.5-5.1) mmol/L Chloride 108 H (98-107) mmol/L Carbon Dioxide 23 (22-30) mmol/L Anion Gap 10 mmol/L BUN 22 H (9-20) mg/dL Creatinine 0.95 (0.66-1.25) mg/dL Est GFR (CKD-EPI)AfAm 88 (>60 ml/min/1.73 sqM) Est GFR (CKD-EPI)NonAf 76 (>60 ml/min/1.73 sqM) Glucose 110 H (74-99) mg/dL POC Glucose (mg/dL) (70-110) mg/dL POC Glu Credit Interviewer ID Calcium 9.2 (8.4-10.2) mg/dL Total Bilirubin 1.9 H (0.2-1.3) mg/dL AST 39 (17-59) U/L ALT 16 (4-49) U/L Alkaline Phosphatase 1980 H (38-126) U/L Ammonia <9 (<30) umol/L Troponin I 0.641 H* (0.000-0.034) ng/mL Total Protein 7.0 (6.3-8.2) g/dL Albumin 3.8 (3.5-5.0) g/dL Disposition Clinical Impression: Metastatic disease Disposition: ADMITTED IP TO THIS HOSP Referrals: [facility],Clinic [Primary Care Provider] - 1-2 days Time of Disposition: 10:01
[2023-04-23] MEDS ORDERED: LORazepam 2 MG/ML INJ IV STA ×2 (07:20→08:13)
[2023-04-23 07:22] VITALS: PULSE 110; RESP 24; TEMP 97.8
[2023-04-23 07:39] LABS: Basophils # (A) 0.1 k/uL (0-0.2); Basophils % (A) 1 %; Eosinophils # (A) 0.1 k/uL (0-0.7); Eosinophils % (A) 1 %; HGB 14.4 gm/dL (13.0-17.5); Lymphocytes # (A) 3.2 k/uL (1.0-4.8); Lymphocytes % (A) 22 %; MCHC 33.6 g/dL (31.0-37.0); MCV 89.5 fL (80.0-100.0); Mean Platelet Volume 10.1; Monocytes # (A) 1.1 k/uL (0-1.0); Monocytes % (A) 8 %; Neutrophils # (A) 9.8 k/uL (1.3-7.7); Neutrophils % (A) 67 %; Platelet Count 147 k/uL (150-450); RBC 4.81 m/uL (4.30-5.90); RDW 13.8 % (11.5-15.5); WBC 14.6 k/uL (3.8-10.6)
[2023-04-23 07:50] LABS: INR 1.4 (<1.2); Partial Thromboplastin Time 25.4 sec (22.0-30.0); Prothrombin Time 14.6 sec (10.0-12.5)
[2023-04-23 07:54] LABS: ALT 16 U/L (4-49); AST 39 U/L (17-59); African American GFR (CKD) 88 (>60 ml/min/1.73 sqM); Albumin 3.8 g/dL (3.5-5.0); Anion Gap 10 mmol/L; Blood Urea Nitrogen 22 mg/dL (9-20); Calcium 9.2 mg/dL (8.4-10.2); Carbon Dioxide 23 mmol/L (22-30); Chloride 108 mmol/L (98-107); Glucose 110 mg/dL (74-99); Non-African American GFR(CKD) 76 (>60 ml/min/1.73 sqM); Potassium 4.1 mmol/L (3.5-5.1); Sodium 141 mmol/L (137-145); Total Bilirubin 1.9 mg/dL (0.2-1.3)
--- NOTE | 2023-04-23 08:07 | XR ---
EXAMINATION TYPE: XR chest 1V portable DATE OF EXAM: 04/23/2023 Comparison: 08/12/2020 Clinical History: 82-year-old male confusion, altered mental status Findings: Heart borderline enlarged. Diffuse interstitial densities especially in the periphery of the lungs ap pears to have increased from prior. No pleural effusion. Impression: Increased interstitial densities especially in the periphery of the lungs. Consider a perivascular co ngestion/CHF versus atypical/COVID pneumonias.
[2023-04-23 08:32] LABS: Alkaline Phosphatase 1980 U/L (38-126)
--- NOTE | 2023-04-23 08:32 | CT ---
EXAMINATION TYPE: CT brain wo con DATE OF EXAM: 04/23/2023 COMPARISON: 08/16/2020 INDICATION: ams DLP: 1388.4 mGycm, Automated exposure control for dose reduction was used. CONTRAST: None CT of the brain is performed utilizing 3 mm thick sections through the posterior fossa and 3 mm thick sections through the remaining calvarium. Study is performed within 24 hours of arrival to the hosp ital. Motion artifact severely limits this examination. No abnormal hyperdensity is present to suggest an acute intracranial hemorrhage. No mass lesion is evident. There is hypodensity extending through the left parietal-occipital region. Underlying infarct should be considered. Underlying metastasis would be difficult to exclude. Ventricles and sulci are appropriate for the patient age. Paranasal sinuses and mastoid air cells within the [id number] are clear. IMPRESSION: 1. Examination is nearly nondiagnostic due to motion artifact despite restraints. 2. There are changes suggestive for infarct or possibly vasogenic edema through the left parietal-occ ipital lobe. Correlate with the patient's symptoms.
[2023-04-23] MEDS ORDERED: DEXAMETHASONE SOD PHOSPHATE 10 MG/ML 1 ML VIAL IVP STA (08:41)
[2023-04-23 10:20] VITALS: BP 120/96
[2023-04-23] MEDS ORDERED: HYDROmorphone 0.5 MG/0.5 ML SYRINGE IVP STA (10:42)
[2023-04-23] MEDS ORDERED: HYDROmorphone 0.5 MG/0.5 ML SYRINGE IVP PRN (10:42)
== END 2023-04-23 12:05 | disposition other institution (70) ==
LOC: EC 06:51
DX: C79.9 Secondary malignant neoplasm of unspecified site (principal); R00.0 Tachycardia, unspecified; I10 Essential (primary) hypertension; I25.2 Old myocardial infarction; F17.200 Nicotine dependence, unspecified, uncomplicated; Z86.59 Personal history of other mental and behavioral disorders; Z86.73 Personal history of transient ischemic attack (TIA), and cerebral infarction without residual deficits; Z79.01 Long term (current) use of anticoagulants
CPT/HCPCS: 36415; 93005; 80053; 82140; 84484; 85025; 85610; 85730; 71045; 70450; 99285; 96374; 96375 ×3; 96376 ×2; 96361; J2060; J1100; J3360; J1170

== ENCOUNTER 2023-04-23 11:54 | Inpatient (IN) | payer MEDICAID ==
[2023-04-23] MEDS ORDERED: MORPHINE SULFATE 4 MG/ML SYRINGE IV PRN (12:00)
[2023-04-23] MEDS ORDERED: HALOPERIDOL LACTATE 5 MG/ML 1 ML VIAL IM PRN (12:00)
[2023-04-23] MEDS: LORazepam 2 MG/ML INJ IV PRN (12:23)
[2023-04-23 12:26] VITALS: BP 141/98; PULSE 112; TEMP 97.7
--- NOTE | 2023-04-23 12:52 | P.HPIM ---
History of Present Illness H&P Date: 04/23/23 Patient is a 82-year-old male with a past medical history of Parkinson's disease, coronary disease, history of TIA, hypertension, BPH who was admitted to our facility about a week ago with right hip pain. Patient had a pelvic CT scan that showed diffuse osseous metastatic disease and new acute nondisplaced fracture involving the right inferior pelvic ramus. Patient also had a CT chest abdomen which showed a 1.7 cm solid mass in the left kidney. Patient had a bone scan done that confirmed metastatic bone disease. Patient's total PSA was greater than 150. Oncology suspecting prostate cancer with metastasis. Patient on last admission did not want any further workup done as he was already limited in his lifestyle due to Parkinson's disease. Patient returns to the ED today due to altered mental status. In the ED patient had a CT scan that was limited due to motion artifact but did show possible vasogenic edema. requested for hospice. Patient was seen by hospice nurse in the ED patient will be admitted to [facility]. Review of systems: Unable to perform due to altered mental status Physical exam General: [Patient is anxious, AO x 0, appears chronically debilitated]. Eye: [No scleral icterus, normal conjunctiva]. HENT: [Normocephalic, clear tympanic membranes]. Neck: [Supple, non-tender, no carotid bruits, no JVD, no lymphadenopathy]. Lungs: [Diminished breath sounds bilaterally, non-labored respiration]. Heart: [Normal rate, regular rhythm, no murmur, gallop or edema]. Abdomen: [Soft, non-tender, non-distended, normal bowel sounds, no masses]. Musculoskeletal: [Normal range of motion and strength, no tenderness or swelling]. Neurologic: [Awake, alert, and oriented X0, patient not following any commands]. Psychiatric: [Patient is confused and noncooperative]. 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 Past Medical History Past Medical History: CVA/TIA, Hearing Disorder / Deafness, Hypertension, Myocardial Infarction (MA), Neurologic Disorder, Osteoarthritis (OA), Prostate Disorder Additional Past Medical History / Comment(s): URINARY LEAKAGE , back pain, Parkinson's Last Myocardial Infarction Date:: 2011 History of Any Multi-Drug Resistant Organisms: None Reported Past Surgical History: Heart Catheterization With Stent, Joint Replacement, Orthopedic Surgery, Tonsillectomy Additional Past Surgical History / Comment(s): TOTAL RIGHT KNEE AND TOTAL LEFT KNEE SURGERY. CARPAL TUNNEL RELEASE RIGHT WRIST Past Anesthesia/Blood Transfusion Reactions: No Reported Reaction Date of Last Stent Placement:: APPROXIMATE 2002 Past Psychological History: Depression Smoking Status: Current every day smoker - Past Family History Father Family Medical History: Cancer Medications and Allergies Home Medications Medication Instructions Recorded Confirmed Type Apixaban [Eliquis] 5 mg PO BID 08/04/20 04/23/23 History Cholecalciferol (Vitamin D3) 50 mcg PO BID 08/04/20 04/23/23 History [Decara (2000 Iu) Vitamin D3] DULoxetine HCL [Cymbalta] 60 mg PO DAILY 08/04/20 04/23/23 History Tamsulosin [Flomax] 0.4 mg PO BID 08/04/20 04/23/23 History lisinopriL [Zestril] 20 mg PO DAILY 08/04/20 04/23/23 History Atorvastatin [Lipitor] 40 mg PO HS 01/24/23 04/23/23 History Carbidopa-Levodopa ER 50-200Mg 1 tab PO QID 01/24/23 04/23/23 History [Sinemet CR 50-200 mg] amantadine HCL [Amantadine] 100 mg PO BID 01/24/23 04/23/23 History rOPINIRole HCL [Requip] 1 mg PO HS 01/24/23 04/23/23 History HYDROcodone/APAP 7.5-325MG [[place] 1 tab PO Q6H 04/02/23 04/23/23 History 7.5-325] Allergies Allergy/AdvReac Type Severity Reaction Status Date / Time No Known Allergies Allergy Verified 04/23/23 07:57 Physical Exam Osteopathic Statement: *. No significant issues noted on an osteopathic structural exam other than those noted in the History and Physical/Consult. Vitals: Vital Signs Temp Pulse Resp BP Pulse Ox 04/23/23 11:54 97.7 F 112 H 22 141/98 93 L Intake and Output 04/22/23 04/23/23 04/23/23 22:59 06:59 14:59 Other: Weight 108.8 kg
[2023-04-23] MEDS: MORPHINE SULFATE (100 MG/2 ML) 100 MG in SODIUM CHLORIDE 0.9% 100 ML IV SCH (12:55)
[2023-04-23] MEDS ORDERED: ZINC OXIDE PASTE (Z-GUARD) 1 APPLIC TOPICAL PRN (16:18)
[2023-04-23] MEDS: NYSTATIN 100,000 UNIT/GM POWD 15 GM TOPICAL SCH (22:35)
[2023-04-24 02:02] VITALS: RESP 13
[2023-04-24] MEDS: NYSTATIN 100,000 UNIT/GM POWD 15 GM TOPICAL SCH ×2 (07:49→20:59)
[2023-04-24] MEDS: MORPHINE SULFATE (100 MG/2 ML) 100 MG in SODIUM CHLORIDE 0.9% 100 ML IV SCH ×2 (07:50→20:53)
[2023-04-24] MEDS: LORazepam 2 MG/ML INJ IV PRN (10:44)
--- NOTE | 2023-04-24 12:19 | P.PN ---
Subjective Progress Note Date: 04/24/23 Hospital course Patient is a 82-year-old male with a past medical history of Parkinson's disease, coronary disease, history of TIA, hypertension, BPH who was admitted to our facility about a week ago with right hip pain. Patient had a pelvic CT scan that showed diffuse osseous metastatic disease and new acute nondisplaced fracture involving the right inferior pelvic ramus. Patient also had a CT chest abdomen which showed a 1.7 cm solid mass in the left kidney. Patient had a bone scan done that confirmed metastatic bone disease. Patient's total PSA was greater than 150. Oncology suspecting prostate cancer with metastasis. Patient on last admission did not want any further workup done as he was already limited in his lifestyle due to Parkinson's disease. Patient returns to the ED today due to altered mental status. In the ED patient had a CT scan that was limited due to motion artifact but did show possible vasogenic edema. requested for hospice. Patient was seen by hospice nurse in the ED patient will be admitted to [facility]. Per nurse this morning patient was agitated. Nurses that he was given IV Ativan and is resting comfortably. I spoke to the at bedside. She is happy that he is comfortable. She is very appreciative of the care that he is receiving. Physical exam General: [Patient is anxious, AO x 0, appears chronically debilitated]. Eye: [No scleral icterus, normal conjunctiva]. HENT: [Normocephalic, clear tympanic membranes]. Neck: [Supple, non-tender, no carotid bruits, no JVD, no lymphadenopathy]. Lungs: [Diminished breath sounds bilaterally, non-labored respiration]. Heart: [Normal rate, regular rhythm, no murmur, gallop or edema]. Abdomen: [Soft, non-tender, non-distended, normal bowel sounds, no masses]. Musculoskeletal: [Normal range of motion and strength, no tenderness or swelling]. Neurologic: [Awake, alert, and oriented X0, patient not following any commands]. Psychiatric: [Patient is confused and noncooperative]. 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 Objective - Vital Signs Vital signs: Vital Signs Temp 97.7 F 04/23/23 11:54 Pulse 112 H 04/23/23 11:54 Resp 13 04/23/23 20:00 BP 141/98 04/23/23 11:54 Pulse Ox 93 L 04/23/23 11:54 FiO2 Intake & Output 04/23/23 04/24/23 04/24/23 18:59 06:59 18:59 Intake Total 6.817 15.436 71.502 Output Total 400 Balance 6.817 -384.564 71.502 Weight 108.8 kg Intake: Intake, IV Titration 6.817 15.436 71.502 Amount Morphine Sulfate (100 mg/ 6.817 15.436 71.502 2 ml) 100 mg In Sodium Chloride 0.9% 100 ml @ 1 MG/HR 1.02 mls/hr IV . Q24H [facility] Rx#:[id number] Oral 0 Output: Urine 400 Other: Voiding Method Indwelling Catheter Indwelling Catheter
[2023-04-25] MEDS: MORPHINE SULFATE (100 MG/2 ML) 100 MG in SODIUM CHLORIDE 0.9% 100 ML IV SCH (06:33)
[2023-04-25] MEDS ORDERED: ATROPINE OPHTH SOLN 1% 5ML BTL SUBLINGUAL PRN (07:08)
[2023-04-25] MEDS ORDERED: SCOPOLAMINE 1 MG/72 HR PATCH TRANSDERM PRN (07:09)
[2023-04-25] MEDS: NYSTATIN 100,000 UNIT/GM POWD 15 GM TOPICAL SCH (09:54)
--- NOTE | 2023-04-25 12:19 | P.DS ---
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 Patient had a pelvic CT scan that showed diffuse osseous metastatic disease and new acute nondisplaced fracture involving the right inferior pelvic ramus. Patient also had a CT chest abdomen which showed a 1.7 cm solid mass in the left kidney. Patient had a bone scan done that confirmed metastatic bone disease. Patient's total PSA was greater than 150. Oncology suspecting prostate cancer with metastasis. Patient on last admission did not want any further workup done as he was already limited in his lifestyle due to Parkinson's disease. Patient returns to the ED today due to altered mental status. In the ED patient had a CT scan that was limited due to motion artifact but did show possible vasogenic edema. requested for hospice. Patient was seen by hospice nurse in the ED patient will be admitted to [facility]. Patient was started on morphine drip for his pain. He was also started IV Ativan for his anxiety. Patient peacefully on 04/25/2023. Cause of is suspected prostate cancer with metastasis to the bone and brain Unfortunately I did not see the patient on the day that he . Plan - Discharge Summary Discharge Rx Participant: No New Discharge Prescriptions: No Action Tamsulosin [Flomax] 0.4 mg PO BID DULoxetine HCL [Cymbalta] 60 mg PO DAILY rOPINIRole HCL [Requip] 1 mg PO HS Apixaban [Eliquis] 5 mg PO BID lisinopriL [Zestril] 20 mg PO DAILY Cholecalciferol (Vitamin D3) [Decara (2000 Iu) Vitamin D3] 50 mcg PO BID amantadine HCL [Amantadine] 100 mg PO BID Carbidopa-Levodopa ER 50-200Mg [Sinemet CR 50-200 mg] 1 tab PO QID Atorvastatin [Lipitor] 40 mg PO HS HYDROcodone/APAP 7.5-325MG [[place] 7.5-325] 1 tab PO Q6H Discharge Medication List Apixaban [Eliquis] 5 mg PO BID 08/04/20 [History] Cholecalciferol (Vitamin D3) [Decara (2000 Iu) Vitamin D3] 50 mcg PO BID 08/04/20 [History] DULoxetine HCL [Cymbalta] 60 mg PO DAILY 08/04/20 [History] Tamsulosin [Flomax] 0.4 mg PO BID 08/04/20 [History] lisinopriL [Zestril] 20 mg PO DAILY 08/04/20 [History] Atorvastatin [Lipitor] 40 mg PO HS 01/24/23 [History] Carbidopa-Levodopa ER 50-200Mg [Sinemet CR 50-200 mg] 1 tab PO QID 01/24/23 [History] amantadine HCL [Amantadine] 100 mg PO BID 01/24/23 [History] rOPINIRole HCL [Requip] 1 mg PO HS 01/24/23 [History] HYDROcodone/APAP 7.5-325MG [[place] 7.5-325] 1 tab PO Q6H 04/02/23 [History] Follow up Appointment(s)/Referral(s): [facility],Clinic [Primary Care Provider] - 1 Week Discharge Disposition: - Preliminary Cause of Preliminary Cause of : Suspected prostate cancer with metastasis to the brain and bone
== END 2023-04-25 11:56 | disposition expired | DRG 951 ==
LOC: EC 11:54 → 5NMEDONC 12:00
PROVIDERS: ADMIT Internal Medicine; ATTEND Internal Medicine
DX: Z51.5 Encounter for palliative care (principal); G93.6 Cerebral edema; G93.49 Other encephalopathy; C79.31 Secondary malignant neoplasm of brain; C79.51 Secondary malignant neoplasm of bone; C61 Malignant neoplasm of prostate; M84.550D Pathological fracture in neoplastic disease, pelvis, subsequent encounter for fracture with routine healing; Z66 Do not resuscitate; G20.A1 Parkinson's disease without dyskinesia, without mention of fluctuations; F41.9 Anxiety disorder, unspecified; I25.10 Atherosclerotic heart disease of native coronary artery without angina pectoris; I10 Essential (primary) hypertension; N40.0 Benign prostatic hyperplasia without lower urinary tract symptoms; I25.2 Old myocardial infarction; H91.90 Unspecified hearing loss, unspecified ear; F32.A Depression, unspecified; F17.200 Nicotine dependence, unspecified, uncomplicated; N28.89 Other specified disorders of kidney and ureter; M19.90 Unspecified osteoarthritis, unspecified site; M54.9 Dorsalgia, unspecified; Z79.01 Long term (current) use of anticoagulants; Z79.891 Long term (current) use of opiate analgesic; Z79.899 Other long term (current) drug therapy; Z86.73 Personal history of transient ischemic attack (TIA), and cerebral infarction without residual deficits